=== PATIENT | female | born 1990 | race African-American/Black ===

== ENCOUNTER 2021-02-21 09:26 | Emergency (ER) | payer OTHER, SELFPAY ==
[2021-02-21] VITALS (8 sets, daily range): BP systolic 92–151; BP diastolic 51–106; PULSE 70–93; RESP 14–18; TEMP 37; O2SAT 95–100; BMI 29.7
--- NOTE | 2021-02-21 09:39 | ED_ITS ---
HPI - Abdominal Pain General Chief Complaint: Abdominal Pain Stated Complaint: Severe abd pain, vomitting, seizures (has Epilepsy Time Seen by Provider: 02/21/21 09:34 Source: patient Mode of arrival: Wheelchair Limitations: no limitations History of Present Illness HPI narrative: 30-year-old female nonsmoker with history of seizures presents with significant other and a chief complaint of feeling unwell since yesterday. She has had multiple episodes of nausea, vomiting and diarrhea. She states she has vomited upwards of 50 times and that she has even had small amount of blood streaks in more recent episodes of emesis. She has developed some generalized abdominal pain which seems a bit worse in her epigastrium and states this is worse with motion as well as eating and drinking. She denies any radiation of this pain. She has become dizzy, weak and lightheaded. She denies headache, runny nose or sore throat. She denies any dysuria, frequency or urgency. Related Data Previous Rx's Medication Instructions Recorded amoxicillin 875 mg-potassium 1 tab PO BID #20 tab 02/21/21 clavulanate 125 mg tablet (Augmentin) hyoscyamine sulfate 0.125 mg tablet 0.125 mg PO BID-QID PRN #20 tab 02/21/21 ondansetron 4 mg disintegrating 4 mg PO TID-QID PRN #10 tab 02/21/21 tablet Allergies Allergy/AdvReac Type Severity Reaction Status Date / Time No Known Drug Allergies Allergy Verified 02/21/21 09:37 Review of Systems Review of Systems Narrative: GENERAL: See HPI HEENT: See HPI RESPIRATORY: Denies dyspnea, cough, wheezing, hemoptysis, sputum. CARDIOVASCULAR: Denies chest pain, palpitations, orthopnea, edema, GASTROINTESTINAL: See HPI : Denies dysuria, frequency, incontinence, hematuria, urinary retention. MUSCULOSKELETAL: denies weakness, joint pain, or bony pain SKIN: Denies rash, skin lesions, or other NEUROLOGIC: Denies weakness, headache, numbness, change in speech, confusion, seizures, incoordination. PSYCHIATRIC: No concerning psychosocial issues. 12 point review of systems is negative except for those stated above Patient History Social History Smoking Status: Unknown if ever smoked Smoking Status: Unknown if ever smoked alcohol intake frequency: holidays/special occasions only Substance Use Type: marijuana Exam Narrative Exam Narrative: GENERAL: [22 year old patient appears stated age. Well-developed patient, in moderate distress, tearful, anxious, clearly feeling unwell. Holding an emesis bag HEAD: Atraumatic. Normocephalic. EYES: Pupils equal round and reactive. Extraocular motions intact. No scleral icterus. No injection or drainage. ENT: Nose without bleeding, purulent drainage. Throat without erythema, tonsillar hypertrophy or exudate. Airway patent. NECK: Trachea midline. Non tender CARDIOVASCULAR: Regular rate and rhythm without murmurs, gallops, or rubs. RESPIRATORY: Clear to auscultation. Breath sounds equal bilaterally. No wheezes, rales, or rhonchi. GASTROINTESTINAL: Abdomen soft, tender throughout, bowel sounds present. Most tender in the epigastrium and right upper quadrant EXTREMITIES: No edema or joint tenderness. BACK: Nontender without deformity or crepitance. No flank tenderness. NEURO: AOx3. SKIN: No rash or erythema of visible areas Initial Vital Signs Initial Vital Signs: Vital Signs Temperature 98.6 F 02/21/21 09:34 Pulse Rate 70 02/21/21 09:34 Respiratory Rate 14 02/21/21 09:34 Blood Pressure 151/106 H 02/21/21 09:34 Pulse Oximetry 100 02/21/21 09:34 Course Orders Ordered: Discontinued Medications Hydromorphone HCl (Hydromorphone 0.5 Mg Inj) 0.5 mg IV NOW ONE Stop: 02/21/21 09:49 Last Admin: 02/21/21 10:01 Dose: 0.5 mg Documented by: ISIDRO Sodium Chloride (Normal Saline 0.9%) 1,000 mls @ 1,000 mls/hr IV BOLUS ONE Stop: 02/21/21 10:41 Last Infusion: 02/21/21 11:18 Dose: 0 mls/hr Documented by: Admin: 02/21/21 10:05 Dose: 1,000 mls/hr Documented by: ISIDRO Ondansetron HCl (Ondansetron 4 Mg/2 Ml Inj) 4 mg IV NOW ONE Stop: 02/21/21 09:40 Last Admin: 02/21/21 10:00 Dose: 4 mg Documented by: ISIDRO Ondansetron HCl (Ondansetron 4 Mg/2 Ml Inj) 4 mg IV NOW ONE Stop: 02/21/21 09:43 Last Admin: 02/21/21 10:48 Dose: Not Given Documented by: ISIDRO Pantoprazole Sodium (Pantoprazole 40 Mg Vial) 40 mg IV NOW ONE Stop: 02/21/21 09:49 Last Admin: 02/21/21 10:04 Dose: 40 mg Documented by: ISIDRO Reevaluation(s) Reevaluation #1: Patient feeling much better after above-stated therapies Vital Signs Vital signs: Vital Signs - 8 hr 02/21/21 09:34 Temperature 98.6 F Pulse Rate 70 Respiratory Rate 14 Blood Pressure 151/106 H Pulse Oximetry 100 MDM - Abdominal Pain Lab Data Result diagrams: 02/21/21 09:53 02/21/21 09:53 Labs: Lab Results 02/21/21 02/21/21 02/21/21 Range/Units 09:53 09:53 10:28 WBC 19.1 H (4.5-11.0) X10^3/uL RBC 4.48 (4.0-5.2) X10^6/uL Hgb 13.4 (12.0-16.0) g/dL Hct 39.7 (36-46) % MCV 88.8 (80-100) fL MCH 29.9 (26-34) PG MCHC 33.6 (30-36) % RDW 14.4 (11.6-14.8) % Plt Count 255 (150-400) X10^3/uL Neut % (Auto) 93.0 H (50-75) % Lymph % (Auto) 3.5 L (25-40) % Garden % (Auto) 3.3 (3-14) % Eos % (Auto) 0.0 L (2-4) % Baso % (Auto) 0.2 (0-2) % Neut # (Auto) 34729 H (8334-0897) /uL Lymph # (Auto) 700 L (3215-2273) /uL Garden # (Auto) 600 (0-900) /uL Eos # (Auto) 0 (0-450) /uL Baso # (Auto) 0 (0-100) /uL Sodium 136 L (137-145) mmol/L Potassium 3.9 (3.4-5.1) mmol/L Chloride 102 (98-107) mmol/L Carbon Dioxide 24 (22-32) mmol/L BUN 10 (7-17) mg/dL Creatinine 0.69 (0.52-1.04) mg/dL Estimated GFR > 60.0 (>60) mL/min BUN/Creatinine Ratio 14.5 (6-22) Glucose 140 H (70-100) mg/dL Calcium 9.6 (8.4-10.2) mg/dL Total Bilirubin 1.4 H (0.2-1.3) mg/dL AST 32 (14-36) IU/L ALT 24 (<35) IU/L Alkaline Phosphatase 88 (38-126) U/L Total Protein 8.4 H (6.3-8.2) g/dL Albumin 4.9 (3.5-5.0) g/dL Globulin 3.5 (1.7-4.1) g/dL Albumin/Globulin Ratio 1.4 (1.0-2.8) Lipase 36 (23-300) U/L Serum , Qual (Negative) Urine RBC (0-5/HPF) Urine WBC (0-5/HPF) Ur Squamous Epith Cells (0-5/HPF) Urine Bacteria (None) Ur Culture Indicated? SARS-CoV-2 (PCR) Negative (Negative) 02/21/21 02/21/21 Range/Units 11:00 11:35 WBC (4.5-11.0) X10^3/uL RBC (4.0-5.2) X10^6/uL Hgb (12.0-16.0) g/dL Hct (36-46) % MCV (80-100) fL MCH (26-34) PG MCHC (30-36) % RDW (11.6-14.8) % Plt Count (150-400) X10^3/uL Neut % (Auto) (50-75) % Lymph % (Auto) (25-40) % Garden % (Auto) (3-14) % Eos % (Auto) (2-4) % Baso % (Auto) (0-2) % Neut # (Auto) (6886-6899) /uL Lymph # (Auto) (3222-2236) /uL Garden # (Auto) (0-900) /uL Eos # (Auto) (0-450) /uL Baso # (Auto) (0-100) /uL Sodium (137-145) mmol/L Potassium (3.4-5.1) mmol/L Chloride (98-107) mmol/L Carbon Dioxide (22-32) mmol/L BUN (7-17) mg/dL Creatinine (0.52-1.04) mg/dL Estimated GFR (>60) mL/min BUN/Creatinine Ratio (6-22) Glucose (70-100) mg/dL Calcium (8.4-10.2) mg/dL Total Bilirubin (0.2-1.3) mg/dL AST (14-36) IU/L ALT (<35) IU/L Alkaline Phosphatase (38-126) U/L Total Protein (6.3-8.2) g/dL Albumin (3.5-5.0) g/dL Globulin (1.7-4.1) g/dL Albumin/Globulin Ratio (1.0-2.8) Lipase (23-300) U/L Serum , Qual Negative (Negative) Urine RBC None seen (0-5/HPF) Urine WBC 1-5/hpf (0-5/HPF) Ur Squamous Epith Cells 1-5 /hpf (0-5/HPF) Urine Bacteria Many (>30) H (None) Ur Culture Indicated? Specimen cultured SARS-CoV-2 (PCR) (Negative) Point of care testing: Point of Care Testing Test Results Negative Urine Dip Bedside Urine Glucose Negative Bedside Urine Bilirubin - Negative Bedside Urine Ketone - Negative Urine Specific [place] 1.015 Bedside Urine Occult Blood - Negative Bedside Urine pH 7.5 Bedside Urine Protein +/- 15 Bedside Urine Urobilinogen - Negative Bedside Urine Nitrite - Negative Imaging Data US - abdomen: My Impression: Ultrasound Report Signed Patient: Gem Seymour MR#: [id number] : 1990 Acct:[id number] Age/Sex: 30 / F Date of Service: 02/21/21 Loc: ED Accession Number: [id number] ?? Procedure: US abdomen limited Ordering Provider: Demarcus Sierra D.O. PROCEDURE: US ABDOMEN LIMITED ? INDICATIONS:? SEVERE EPIGASTRIC PAIN. NAUSEA/VOMITING. WORSE POSTPRANDIAL. ? TECHNIQUE:? Real-time focused scanning was performed of the abdomen, with image documentation.? ? COMPARISON:? None. ? FINDINGS:? The gallbladder appears normally distended.? There are nonmobile sto kinjal in the gallbladder fundus.? There is a folded (Phrygian cap) configuration to the gallbladder.? No intrahepatic or extrahepatic biliary ductal dilatation.? Normal hepatic parenchymal echogenicity and echotexture.? Visualized portions of the pancreas are unremarkable. ? IMPRESSION:? Cholelithiasis without wall thickening or pericholecystic fluid to suggest cholecystitis. ? ? Dictated by: Bakari Palomino M.D. on 02/21/2021 at 10:27 ? ? Approved by: Bakari Palomino M.D. on 02/21/2021 at 10:38 ? CT scan - abdomen/pelvis: Radiologist's Impression: Gem Seymour??30??F??1990 ? Allergy/Adv: No Known Drug Allergies (More??) Close Abdomen/Pelvis CT (Signed) Stephanie Archibald - 02/21/21 Abdomen Ultrasound (Signed) Bakari Palomino - 02/21/21 Launch?[place] [address] CT Scan Report Signed Patient: Gem Seymour MR#: [id number] : 1990 Acct:[id number] Age/Sex: 30 / F Date of Service: 02/21/21 Loc: ED Accession Number: [id number] ?? Procedure: CT abdomen pelvis w con Ordering Provider: Demarcus Sierra D.O. PROCEDURE:? CT ABDOMEN PELVIS W CON ? INDICATIONS:? severe pain, N/V/D ? TECHNIQUE:? After the administration of IV contrast, axial sections were acquired from the lung bases to the pubic symphysis.? Coronal and sagittal reformats were performed.? For radiation dose reduction, the following was used:? automated exposure control, adjustment of mA and/or kV according to patient size. ? COMPARISON:? [facility], ABDOMEN LIMITED, 02/21/2021, 10:00. ? FINDINGS:? Image quality:? Excellent.? ? Lung bases:? 2 mm nodule is present along the right major fissure series 2, image 6. 1-2 mm juxta fissural nodule is present on series 2, image 4.? No priors are available for comparison. Heart:? No significant findings. ? ? ABDOMEN: Liver:? Liver is enlarged with steatosis. Gallbladder:? The gallbladder is unremarkable.? ? Biliary ducts:? Unremarkable.? ? Pancreas:? Unremarkable.? ? Spleen:? Unremarkable.? ? Adrenal Glands:? Unremarkable.? ? Kidneys and Ureters:? Unremarkable.? ? ? Stomach and Bowel:? Stomach, small bowel loops, and colon are nonobstructive.? There is a mildly thickened appearance of the transverse colon extending to the descending colon.? Minimal pericolonic stranding is present.? Appendix is normal. Peritoneum:? No abnormal intraperitoneal fluid.? No free air.? ? Ventral Wall: ? No hernia.? Abdominal Nodes:? No retroperitoneal or mesenteric adenopathy by size criteria.? Vessels:? Aorta and inferior vena cava are normal in size.? ? PELVIS: Pelvic Organs:? 5.2 x 4.3 cm low-attenuation focus is present within the left adnexa.? There is minimal surrounding dependent fluid. Bladder:? Unremarkable.? ? Pelvic Nodes: No enlarged lymph nodes.? Miscellaneous: No inguinal hernias are seen. ? ? ? Bones:? Unremarkable.? IMPRESSION:? ? 1. Mildly thickened appearance of the transverse and descending colon as above with areas of pericolonic stranding suggestive of colitis.? This may be secondary to infection or inflammation.? Colitis could also be secondary to diverticulitis, however it is noted there is a very minimal appearance of diverticula within this region. ? 2.? Right ovarian cyst.? ? ? Dictated by: Stephanie Archibald M.D. on 02/21/2021 at 12:04 ? ? Approved by: Stephanie Archibald M.D. on 02/21/2021 at 12:14 ? [facility] Narrative Medical decision making narrative: Patient had significant improvement in symptoms with above-stated therapies. Pain is well controlled she is tolerating orals. Labs demonstrate an elevated white blood cell count which could surely be a stress response from vomiting, also imaging would suggest a colitis. Gal lbladder disease and pancreatitis are considered but labs and imaging would suggest against this. Other diagnoses such as bowel obstruction considered but thought less likely given imaging. Return precautions given and questions answered to her apparent satisfaction Discharge Plan Departure Patient Disposition: Home Clinical Impression: Colitis Instructions: DI for Colitis Activity Restrictions/Additional Instructions: *You have been diagnosed with [abdominal pain and vomiting due to colitis *What to do: *Please continue to take your regular medications as directed. [ x] New medication prescriptions sent to your pharmacy: [ [facility] in [place]] [ ] New medication written as a paper prescription [ ] No new medications given *Please follow up with your primary care provider in 2-3 days, call for an appointment. Let them know you were seen in the Emergency Department and that we ask that you be seen in follow up. We will electronically transmit a record of today's note if your PCP is in our system *If you do not have a primary care provider please contact the [facility] Resource line at [phone]. They will ask some questions about your medical history and help get you set up with a doctor in the community. *Return to Emergency Department if you should have any new, worsening or concerning symptoms, such as [fever greater than 101 F, shaking chills, worsening pain, persistent vomiting or other bothersome symptoms] Prescriptions: New hyoscyamine sulfate 0.125 mg tablet 0.125 mg PO BID-QID PRN (Reason: dyspepsia) Qty: 20 RF: 0 ondansetron 4 mg tablet,disintegrating 4 mg PO TID-QID PRN (Reason: nausea and vomiting) Qty: 10 RF: 0 amoxicillin-pot clavulanate [Augmentin] 875-125 mg tablet 1 tab PO BID Qty: 20 RF: 0 Referrals: [facility] [Outside] Stand Alone Forms: Work Release Note
--- NOTE | 2021-02-21 09:48 | DI.US.S_ITS ---
PROCEDURE: US ABDOMEN LIMITED INDICATIONS: SEVERE EPIGASTRIC PAIN. NAUSEA/VOMITING. WORSE POSTPRANDIAL. TECHNIQUE: Real-time focused scanning was performed of the abdomen, with image documentation. COMPARISON: None. FINDINGS: The gallbladder appears normally distended. There are nonmobile stones in the gallbladder fundus. There is a folded (Phrygian cap) configuration to the gallbladder. No intrahepatic or extrahepatic biliary ductal dilatation. Normal hepatic parenchymal echogenicity and echotexture. Visualized portions of the pancreas are unremarkable. IMPRESSION: Cholelithiasis without wall thickening or pericholecystic fluid to suggest cholecystitis. Dictated by: Bakari Palomino M.D. on 02/21/2021 at 10:27 Approved by: Bakari Palomino M.D. on 02/21/2021 at 10:38
[2021-02-21] MEDS: ONDANSETRON 4 MG/2 ML INJ IV (10:00)
[2021-02-21] MEDS: HYDROMORPHONE 0.5 MG INJ IV (10:01)
[2021-02-21] MEDS: PANTOPRAZOLE 40 MG VIAL IV (10:04)
[2021-02-21] MEDS: SODIUM CHLORIDE 0.9% 1,000 ML 1000 ML IV (10:05)
[2021-02-21 10:07] LABS: Add Manual Diff / Slide Review NO; Basophils Absolute Auto 0 /uL (0-100); Basophils Percent Auto 0.2 % (0-2); Eosinophils Absolute Auto 0 /uL (0-450); Hematocrit 39.7 % (36-46); Hemoglobin 13.4 g/dL (12.0-16.0); Lymphocytes Absolute Auto 700 /uL (1100-4500); Lymphocytes Percent Auto 3.5 % (25-40); Mean Corpuscular HGB Conc 33.6 % (30-36); Mean Corpuscular Hemoglobin 29.9 PG (26-34); Mean Corpuscular Volume 88.8 fL (80-100); Monocytes Absolute Auto 600 /uL (0-900); Monocytes Percent Auto 3.3 % (3-14); Neutrophils Absolute Auto 17800 /uL (1500-7000); Platelet Count 255 X10^3/uL (150-400); Red Blood Cell Count 4.48 X10^6/uL (4.0-5.2); Red Cell Distribution Width 14.4 % (11.6-14.8); White Blood Cell Count 19.1 X10^3/uL (4.5-11.0)
[2021-02-21 10:29] LABS: Alanine Aminotransferase 24 IU/L (<35); Albumin 4.9 g/dL (3.5-5.0); Albumin Globulin Ratio 1.4 (1.0-2.8); Alkaline Phosphatase 88 U/L (38-126); Aspartate Aminotransferase 32 IU/L (14-36); BUN Creatinine Ratio 14.5 (6-22); Bilirubin Total 1.4 mg/dL (0.2-1.3); Blood Urea Nitrogen 10 mg/dL (7-17); Calcium 9.6 mg/dL (8.4-10.2); Carbon Dioxide 24 mmol/L (22-32); Chloride 102 mmol/L (98-107); Estimated Glomerular Filt Rate > 60.0 mL/min (>60); Globulin 3.5 g/dL (1.7-4.1); Glucose 140 mg/dL (70-100); HEMOLYSIS < 15 (0-50); Lipase 36 U/L (23-300); Potassium 3.9 mmol/L (3.4-5.1); Sodium 136 mmol/L (137-145); Total Protein 8.4 g/dL (6.3-8.2)
[2021-02-21 11:02] LABS: COVID19 -Nasal RAPID Negative (Negative)
[2021-02-21 11:09] LABS: Pregnancy Test Serum,Qual Negative (Negative)
--- NOTE | 2021-02-21 11:23 | DI.CT.S_ITS ---
PROCEDURE: CT ABDOMEN PELVIS W CON INDICATIONS: severe pain, N/V/D TECHNIQUE: After the administration of IV contrast, axial sections were acquired from the lung bases to the pubic symphysis. Coronal and sagittal reformats were performed. For radiation dose reduction, the following was used: automated exposure control, adjustment of mA and/or kV according to patient size. COMPARISON: [facility], , ABDOMEN LIMITED, 02/21/2021, 10:00. FINDINGS: Image quality: Excellent. Lung bases: 2 mm nodule is present along the right major fissure series 2, image 6. 1-2 mm juxta fissural nodule is present on series 2, image 4. No priors are available for comparison. Heart: No significant findings. ABDOMEN: Liver: Liver is enlarged with steatosis. Gallbladder: The gallbladder is unremarkable. Biliary ducts: Unremarkable. Pancreas: Unremarkable. Spleen: Unremarkable. Adrenal Glands: Unremarkable. Kidneys and Ureters: Unremarkable. Stomach and Bowel: Stomach, small bowel loops, and colon are nonobstructive. There is a mildly thickened appearance of the transverse colon extending to the descending colon. Minimal pericolonic stranding is present. Appendix is normal. Peritoneum: No abnormal intraperitoneal fluid. No free air. Ventral Wall: No hernia. Abdominal Nodes: No retroperitoneal or mesenteric adenopathy by size criteria. Vessels: Aorta and inferior vena cava are normal in size. PELVIS: Pelvic Organs: 5.2 x 4.3 cm low-attenuation focus is present within the left adnexa. There is minimal surrounding dependent fluid. Bladder: Unremarkable. Pelvic Nodes: No enlarged lymph nodes. Miscellaneous: No inguinal hernias are seen. Bones: Unremarkable. IMPRESSION: 1. Mildly thickened appearance of the transverse and descending colon as above with areas of pericolonic stranding suggestive of colitis. This may be secondary to infection or inflammation. Colitis could also be secondary to diverticulitis, however it is noted there is a very minimal appearance of diverticula within this region. 2. Right ovarian cyst. Dictated by: Stephanie Archibald M.D. on 02/21/2021 at 12:04 Approved by: Stephanie Archibald M.D. on 02/21/2021 at 12:14
[2021-02-21 12:38] LABS: Bacteria Urine Many (>30); Culture Indicated Urine Specimen Cultured; RBC Urine None Seen (0-5/HPF); Squamous Epithelial Cell Urine 1-5 /HPF (0-5/HPF); WBC Urine 1-5/HPF (0-5/HPF)
== END 2021-02-21 13:26 | disposition home or self-care (01) ==
PROVIDERS: Emergency Provider Emergency Medicine
DX: K52.9 Noninfective gastroenteritis and colitis, unspecified (principal); R11.2 Nausea with vomiting, unspecified; R10.9 Unspecified abdominal pain; Z20.822 Contact with and (suspected) exposure to COVID-19
CPT/HCPCS: 36415; 74177; 76705; 80053; 81003; 81015; 81025; 83690; 84703; 85025; 87077; 87086; 87186; 87635; 96361; 96374; 96375; 99284; C9803; C9113; J1170; J2405

== ENCOUNTER 2021-03-07 15:25 | Emergency (ER) | payer OTHER, SELFPAY ==
[2021-03-07 15:44] VITALS: BP 148/75; PULSE 91; RESP 20; TEMP 36.7; O2SAT 100; BMI 31.6
[2021-03-07 17:54] LABS: Add Manual Diff / Slide Review NO; Basophils Absolute Auto 100 /uL (0-100); Basophils Percent Auto 0.7 % (0-2); Eosinophils Absolute Auto 200 /uL (0-450); Eosinophils Percent Auto 2.2 % (2-4); Hematocrit 40.2 % (36-46); Hemoglobin 13.4 g/dL (12.0-16.0); Lymphocytes Absolute Auto 2600 /uL (1100-4500); Lymphocytes Percent Auto 31.1 % (25-40); Mean Corpuscular HGB Conc 33.5 % (30-36); Mean Corpuscular Hemoglobin 29.9 PG (26-34); Mean Corpuscular Volume 89.2 fL (80-100); Monocytes Absolute Auto 600 /uL (0-900); Monocytes Percent Auto 7.1 % (3-14); Neutrophils Absolute Auto 4800 /uL (1500-7000); Neutrophils Percent Auto 58.9 % (50-75); Platelet Count 283 X10^3/uL (150-400); Red Cell Distribution Width 14.5 % (11.6-14.8); White Blood Cell Count 8.2 X10^3/uL (4.5-11.0)
--- NOTE | 2021-03-07 17:56 | PC.NURSE ---
[facility] IMPLEMENTATION SPECIALISTBennett Mars was in room speaking to patient. Denae came out and said pt was having a seizure. Myself and Lilian RN went into room,pts eyes were closed and she as laying her head on her husbands shoulder/chest area. I attempted to visualize her pupils but she held her eyes closed. Shortly after I entered the room the patient asked for her who had moved away to allow staff near patient. She then began crying and said it's so embarrasing,why does this keep happening. Pts was telling denae that her seizures seem to happen when she is stressed.
[2021-03-07 18:02] LABS: Alanine Aminotransferase 40 IU/L (<35); Albumin 4.4 g/dL (3.5-5.0); Albumin Globulin Ratio 1.3 (1.0-2.8); Alkaline Phosphatase 81 U/L (38-126); Aspartate Aminotransferase 46 IU/L (14-36); BUN Creatinine Ratio 12.9 (6-22); Blood Urea Nitrogen 9 mg/dL (7-17); Calcium 9.4 mg/dL (8.4-10.2); Carbon Dioxide 24 mmol/L (22-32); Chloride 103 mmol/L (98-107); Estimated Glomerular Filt Rate > 60.0 mL/min (>60); Globulin 3.5 g/dL (1.7-4.1); Glucose 90 mg/dL (70-100); HEMOLYSIS < 15 (0-50); Lipase 120 U/L (23-300); Potassium 4.1 mmol/L (3.4-5.1); Sodium 137 mmol/L (137-145); Total Protein 7.9 g/dL (6.3-8.2)
--- NOTE | 2021-03-07 18:06 | ED.NEUROSD ---
HPI - Neuro Symptoms/Deficit General Chief Complaint: Neuro Symptoms/Deficit Stated Complaint: Seizures, Dizzy and Out of it Time Seen by Provider: 03/07/21 18:05 Source: patient and family Mode of arrival: Ambulatory Limitations: no limitations History of Present Illness HPI Narrative: This is a 30-year-old female comes emergency department with multiple concerns. Patient's main concern is that she might have bipolar. She describes in very up at times, having some difficulty sleeping, being very active in cleaning frequently. Then she will feel very low. She has had issues in the past with depression and was on anti depressions as teen. She states she no longer takes medication for this. She states she was diagnosed with seizures and she describes specifically vasovagal syncope at age 18 or 19 and did see a neurologist at that time. States she used to be on Klonopin but no longer takes that. She describes having multiple seizures over time, but also feeling dizzy, lightheaded and sometimes shaky and confused. She can always pinpoint what is going on around her. She also is concerned because she has chest pain that started this morning, it has increased over the last 2 hours. She denies any fevers. No cough or congestion. She has felt little bit short of breath. She denies nausea, no vomiting, no diarrhea constipation. She has had dysuria with a sense of urgency and frequency as well as some odor and new discharge. Patient believes she may have a yeast infection. Patient denies any other medical issues. No prior surgeries. She denies any allergies to medications. She vapes tobacco, occasional alcohol but states she has decreased her usage significantly. Occasional THC but no other recreational drugs. She is and cannot accompanied by her spouse who is in the [employer]. She states there has multiple stressors as her spouse is potentially going to be kicked out of the [employer] because he does not wish to have the COVID vaccine. Patient reiterates that her main concern is trying to get evaluated for bipolar. On Anticoagulants: No Related Data Previous Rx's Medication Instructions Recorded amoxicillin 875 mg-potassium 1 tab PO BID #20 tab 02/21/21 clavulanate 125 mg tablet (Augmentin) hyoscyamine sulfate 0.125 mg tablet 0.125 mg PO BID-QID PRN #20 tab 02/21/21 ondansetron 4 mg disintegrating 4 mg PO TID-QID PRN #10 tab 02/21/21 tablet fluconazole 150 mg tablet 150 mg PO .qday #2 tab 03/07/21 (Diflucan) Allergies Allergy/AdvReac Type Severity Reaction Status Date / Time No Known Drug Allergies Allergy Verified 02/21/21 09:37 Review of Systems Review of Systems ROS Unobtainable: All systems reviewed & are unremarkable except as noted in HPI and below Hematologic/Lymphatic On Anticoagulants: No Patient History Social History Smoking Status: Current every day smoker Smoking Status: Current every day smoker tobacco type: vaping alcohol intake frequency: holidays/special occasions only Substance Use Type: marijuana Exam Narrative Exam Narrative: GEN: well nourished, well appearing female, alert and oriented x 3, patient appears to be in mild distress. HEENT: Atraumatic, pupils are equal round reactive to light, extraocular movements are intact, nares are clear, TMs are clear with no fluid, there is no conjunctival pallor. Throat is clear without any exudates, erythema, tonsillar enlargement or uvular deviation HEART: Regular rate and rhythm without murmur, clicks, rubs. Pulses are equal in upper and lower extremities LUNGS:Lungs clear to auscultation, no wheezes, rales, crackles, chest moves symmetrically, tachypnea accessory muscle use. Patient speaks in full sentences. ABD:bowel sounds normal, soft, non-tender, no guarding, rebound, rigidity, no masses noted, no hepatosplenomegaly :No CVA tenderness MSCL: Non-tender, no muscle atrophy, muscles strength 5/5 upper and lower extremities, full range of motion NEURO:CN 2-12 intact, sensation normal , reflexes 2/4 upper and lower extremities. finger nose finger test normal, heel salas test normal, romberg normal SKIN: No rash, erythema or other skin changes. Initial Vital Signs Initial Vital Signs: Vital Signs Temperature 98.1 F 03/07/21 15:44 Pulse Rate 91 H 03/07/21 15:44 Respiratory Rate 20 03/07/21 15:44 Blood Pressure 148/75 H 03/07/21 15:44 Pulse Oximetry 100 03/07/21 15:44 Scores GCS Joleen coma scale eye opening: Spontaneous [place] coma scale verbal response: Orientated [place] coma scale motor response: Obey commands [place] coma scale total score: 15 Course Orders Ordered: Discontinued Medications Sodium Chloride (Normal Saline 0.9%) 1,000 mls @ 1,000 mls/hr IV BOLUS ONE Stop: 03/07/21 19:29 Last Infusion: 03/07/21 20:04 Dose: 0 mls/hr Documented by: Admin: 03/07/21 18:56 Dose: 1,000 mls/hr Documented by: LINN Ketorolac Tromethamine (Ketorolac 30 Mg/Ml Vial) 15 mg IV NOW ONE Stop: 03/07/21 18:31 Last Admin: 03/07/21 18:56 Dose: 15 mg Documented by: LINN Ondansetron HCl (Ondansetron 4 Mg/2 Ml Inj) 4 mg IV NOW ONE Stop: 03/07/21 19:24 Last Admin: 03/07/21 19:30 Dose: 4 mg Documented by: LINN Reevaluation(s) Reevaluation #1: Patient is feeling much better. Reviewed patient's imaging and findings. Gave her some referrals in options. They also resources from the social worker delinquency prevention at bedside. We did discuss she has had some odor, urine GC is negative. She is concerned about yeast infection and plan for Diflucan orally. Time: 21:05 Vital Signs Vital signs: Vital Signs - 8 hr 03/07/21 21:00 Pulse Rate 80 Respiratory Rate 15 Blood Pressure 126/87 Pulse Oximetry 100 MDM - Neuro Symptoms/Deficit Lab Data Result diagrams: 03/07/21 17:30 03/07/21 17:30 Labs: Lab Results 03/07/21 03/07/21 03/07/21 Range/Units 17:30 17:30 17:30 WBC 8.2 (4.5-11.0) X10^3/uL RBC 4.50 (4.0-5.2) X10^6/uL Hgb 13.4 (12.0-16.0) g/dL Hct 40.2 (36-46) % MCV 89.2 (80-100) fL MCH 29.9 (26-34) PG MCHC 33.5 (30-36) % RDW 14.5 (11.6-14.8) % Plt Count 283 (150-400) X10^3/uL Neut % (Auto) 58.9 (50-75) % Lymph % (Auto) 31.1 (25-40) % [place] % (Auto) 7.1 (3-14) % Eos % (Auto) 2.2 (2-4) % Baso % (Auto) 0.7 (0-2) % Neut # (Auto) 4800 (1822-9684) /uL Lymph # (Auto) 2600 (6479-1702) /uL [place] # (Auto) 600 (0-900) /uL Eos # (Auto) 200 (0-450) /uL Baso # (Auto) 100 (0-100) /uL Sodium 137 (137-145) mmol/L Potassium 4.1 (3.4-5.1) mmol/L Chloride 103 (98-107) mmol/L Carbon Dioxide 24 (22-32) mmol/L BUN 9 (7-17) mg/dL Creatinine 0.70 (0.52-1.04) mg/dL Estimated GFR > 60.0 (>60) mL/min BUN/Creatinine Ratio 12.9 (6-22) Glucose 90 (70-100) mg/dL Calcium 9.4 (8.4-10.2) mg/dL Total Bilirubin 1.0 (0.2-1.3) mg/dL AST 46 H (14-36) IU/L ALT 40 H (<35) IU/L Alkaline Phosphatase 81 (38-126) U/L Troponin I < 0.012 (0.01-0.034) ng/mL Total Protein 7.9 (6.3-8.2) g/dL Albumin 4.4 (3.5-5.0) g/dL Globulin 3.5 (1.7-4.1) g/dL Albumin/Globulin Ratio 1.3 (1.0-2.8) Lipase 120 (23-300) U/L Serum , Qual (Negative) U Opiates 300ng/mL cut (Negative) Ur Oxycodone Screen (Negative) Urine Methadone Screen (Negative) Ur Barbiturates Screen (Negative) U Tricyclic Antidepress (Negative) Ur Phencyclidine Scrn (Negative) Ur Amphetamines Screen (Negative) U Methamphetamines Scrn (Negative) Ur MDMA Scrn (Ecstasy) (Negative) U Benzodiazepines Scrn (Negative) Urine Cocaine Screen (Negative) U Marijuana (THC) Screen (Negative) Ethyl Alcohol ( - 10) mg/dL Ur Chlamydia DNA (PCR) SARS-CoV-2 (PCR) (Negative) N gonorrhoeae DNA (PCR) 03/07/21 03/07/21 03/07/21 Range/Units 17:30 17:30 19:08 WBC (4.5-11.0) X10^3/uL RBC (4.0-5.2) X10^6/uL Hgb (12.0-16.0) g/dL Hct (36-46) % MCV (80-100) fL MCH (26-34) PG MCHC (30-36) % RDW (11.6-14.8) % Plt Count (150-400) X10^3/uL Neut % (Auto) (50-75) % Lymph % (Auto) (25-40) % [place] % (Auto) (3-14) % Eos % (Auto) (2-4) % Baso % (Auto) (0-2) % Neut # (Auto) (1112-8512) /uL Lymph # (Auto) (8115-8095) /uL [place] # (Auto) (0-900) /uL Eos # (Auto) (0-450) /uL Baso # (Auto) (0-100) /uL Sodium (137-145) mmol/L Potassium (3.4-5.1) mmol/L Chloride (98-107) mmol/L Carbon Dioxide (22-32) mmol/L BUN (7-17) mg/dL Creatinine (0.52-1.04) mg/dL Estimated GFR (>60) mL/min BUN/Creatinine Ratio (6-22) Glucose (70-100) mg/dL Calcium (8.4-10.2) mg/dL Total Bilirubin (0.2-1.3) mg/dL AST (14-36) IU/L ALT (<35) IU/L Alkaline Phosphatase (38-126) U/L Troponin I (0.01-0.034) ng/mL Total Protein (6.3-8.2) g/dL Albumin (3.5-5.0) g/dL Globulin (1.7-4.1) g/dL Albumin/Globulin Ratio (1.0-2.8) Lipase (23-300) U/L Serum , Qual Negative (Negative) U Opiates 300ng/mL cut (Negative) Ur Oxycodone Screen (Negative) Urine Methadone Screen (Negative) Ur Barbiturates Screen (Negative) U Tricyclic Antidepress (Negative) Ur Phencyclidine Scrn (Negative) Ur Amphetamines Screen (Negative) U Methamphetamines Scrn (Negative) Ur MDMA Scrn (Ecstasy) (Negative) U Benzodiazepines Scrn (Negative) Urine Cocaine Screen (Negative) U Marijuana (THC) Screen (Negative) Ethyl Alcohol < 10 ( - 10) mg/dL Ur Chlamydia DNA (PCR) Not detected SARS-CoV-2 (PCR) (Negative) N gonorrhoeae DNA (PCR) Not detected 03/07/21 03/07/21 Range/Units 19:08 19:21 WBC (4.5-11.0) X10^3/uL RBC (4.0-5.2) X10^6/uL Hgb (12.0-16.0) g/dL Hct (36-46) % MCV (80-100) fL MCH (26-34) PG MCHC (30-36) % RDW (11.6-14.8) % Plt Count (150-400) X10^3/uL Neut % (Auto) (50-75) % Lymph % (Auto) (25-40) % [place] % (Auto) (3-14) % Eos % (Auto) (2-4) % Baso % (Auto) (0-2) % Neut # (Auto) (3808-9067) /uL Lymph # (Auto) (9692-2155) /uL [place] # (Auto) (0-900) /uL Eos # (Auto) (0-450) /uL Baso # (Auto) (0-100) /uL Sodium (137-145) mmol/L Potassium (3.4-5.1) mmol/L Chloride (98-107) mmol/L Carbon Dioxide (22-32) mmol/L BUN (7-17) mg/dL Creatinine (0.52-1.04) mg/dL Estimated GFR (>60) mL/min BUN/Creatinine Ratio (6-22) Glucose (70-100) mg/dL Calcium (8.4-10.2) mg/dL Total Bilirubin (0.2-1.3) mg/dL AST (14-36) IU/L ALT (<35) IU/L Alkaline Phosphatase (38-126) U/L Troponin I (0.01-0.034) ng/mL Total Protein (6.3-8.2) g/dL Albumin (3.5-5.0) g/dL Globulin (1.7-4.1) g/dL Albumin/Globulin Ratio (1.0-2.8) Lipase (23-300) U/L Serum , Qual (Negative) U Opiates 300ng/mL cut Negative (Negative) Ur Oxycodone Screen Negative (Negative) Urine Methadone Screen Negative (Negative) Ur Barbiturates Screen Negative (Negative) U Tricyclic Antidepress Negative (Negative) Ur Phencyclidine Scrn Negative (Negative) Ur Amphetamines Screen Negative (Negative) U Methamphetamines Scrn Negative (Negative) Ur MDMA Scrn (Ecstasy) Negative (Negative) U Benzodiazepines Scrn Negative (Negative) Urine Cocaine Screen Negative (Negative) U Marijuana (THC) Screen Positive H (Negative) Ethyl Alcohol ( - 10) mg/dL Ur Chlamydia DNA (PCR) SARS-CoV-2 (PCR) Negative (Negative) N gonorrhoeae DNA (PCR) Urine Dip Bedside Urine Glucose Negative Bedside Urine Bilirubin - Negative Bedside Urine Ketone - Negative Urine Specific [place] 1.030 Bedside Urine Occult Blood - Negative Bedside Urine pH 6.0 Bedside Urine Protein - Negative Bedside Urine Urobilinogen - Negative Bedside Urine Nitrite - Negative Bedside Urine Leukocytes - Negative Esterase ECG Data Attestation: I personally reviewed and interpreted this ECG as follows: Interpretation: Sinus rhythm with sinus arrhythmia. Rate of 72 RI 156 QRS of 76 and QTC 400. No acute ST changes appreciated. [facility] Narrative Medical decision making narrative: During patient's stay she had which she describes as a seizure. Patient did not have any tonic-clonic activity or changes consistent with focal seizure. Approximately 20 seconds symptoms without any postictal period or confusion. There was no staring or prolonged altered mental status witnessed by staff with no additional episodes in department. During discussion patient states she was told she had seizures and and then states that she was diagnosed with vasovagal syncope around the age of 18. Patient is concerned about possible bipolar and some of her daily symptoms do seem consistent with this. She does seem safe and appropriate for discharge home with otherwise reassuring labs, imaging and EKG. Patient did not have any rhythm changes on telemetry. Patient was seen by our social worker delinquency prevention. We discussed options including following up with psychiatry and primary care options. Patient does have support at home from her spouse and she prefers to return home at this time. All questions were answered. Patient also noted she may have a yeast infection and offered a short course of Diflucan. She did not have improvement would need pelvic exam. Discharge Plan Departure Patient Disposition: Home Clinical Impression: Mood disorder Instructions: DI for Mood Disorder Activity Restrictions/Additional Instructions: Follow up with psychiatry for further evaluation. They can help you in clarifying whether a diagnosis of bipolar or possibly a different diagnosis is appropriate for you. I do think this is in a very appropriate choice but does take time to be formally evaluated and diagnosed. Your urine today does not show clear infection but has been sent for culture. Typically results and 40-72 hours and if positive we will contact you. I would go ahead and treat you for possible yeast infection with a dose of Diflucan which can be repeated in 2 days. Prescription sent to [facility] in [place]. Your imaging and labs today are otherwise reassuring. Also included below are options for primary care providers as well as local psychiatrist. You may also contact [facility]. The number below is the suicide hotline but also the self-referral for resources such as counseling and providers. You can call this number at any time. If you're feeling suicidal or having suicidal thoughts, contact the suicide hotline: . Please return for new or worsening symptoms, thoughts of harming yourself or others, new worsening chest pain, shortness of breath, persistent vomiting, black or bloody stools or other new or concerning symptoms. Prescriptions: New fluconazole [Diflucan] 150 mg tablet 150 mg PO .qday Qty: 2 RF: 0 No Action hyoscyamine sulfate 0.125 mg tablet 0.125 mg PO BID-QID PRN (Reason: dyspepsia) Qty: 20 RF: 0 ondansetron 4 mg tablet,disintegrating 4 mg PO TID-QID PRN (Reason: nausea and vomiting) Qty: 10 RF: 0 amoxicillin-pot clavulanate [Augmentin] 875-125 mg tablet 1 tab PO BID Qty: 20 RF: 0 Referrals: Skip Kuhn MD [Physician] - Perry Mansfield DO [Physician] - Jessy Oneal DO [Physician] - Stand Alone Forms: Work Release Note
[2021-03-07 18:14] LABS: Troponin I < 0.012 ng/mL (0.01-0.034)
--- NOTE | 2021-03-07 18:30 | DI.CT.S_ITS ---
PROCEDURE: CT HEAD/BRAIN WO CON INDICATIONS: dizzy, seizures, syncope, multi complaints TECHNIQUE: Noncontrast 4.5 mm thick angled axial sections acquired from the foramen magnum to the vertex, with coronal and sagittal reformats. For radiation dose reduction, the following was used: automated exposure control, adjustment of mA and/or kV according to patient size. COMPARISON: None. FINDINGS: Image quality: Excellent. CSF spaces: Basal cisterns are patent. No extra-axial fluid collections. Ventricles are normal in size and shape. Brain: No midline shift. No intracranial masses or hemorrhage. [place]-white matter interface is normal. Skull and face: Calvarium and visualized facial bones are intact, without suspicious lesions. Sinuses: Visualized sinuses and mastoids are clear. IMPRESSION: Normal CT brain Approved by: Joe Curran M.D. on 03/07/2021 at 18:31
--- NOTE | 2021-03-07 18:30 | DI.RAD.S_ITS ---
PROCEDURE: XR CHEST 1V INDICATIONS: seizure, dizzy, chest pain, multiple complaints TECHNIQUE: One view of the chest was acquired. COMPARISON: None. FINDINGS: Surgical changes and devices: None. Lungs and pleura: Lungs are clear. No pleural effusions or pneumothorax. Mediastinum: Mediastinal contours appear normal. Heart size is normal. Bones and chest wall: No suspicious bony lesions. Overlying soft tissues appear unremarkable. IMPRESSION: No acute cardiopulmonary disease. Dictated by: Lynda Mcgarry M.D. on 03/07/2021 at 19:34 Approved by: Lynda Mcgarry M.D. on 03/07/2021 at 19:35
[2021-03-07 18:48] LABS: Pregnancy Test Serum,Qual Negative (Negative)
[2021-03-07 18:49] LABS: Ethanol (ETOH) < 10 mg/dL
[2021-03-07] MEDS: SODIUM CHLORIDE 0.9% 1,000 ML 1000 ML IV (18:56)
[2021-03-07] MEDS: KETOROLAC 30 MG/ML VIAL 15 MG IV (18:56)
[2021-03-07 19:21] LABS: UR Morphine/Opiate cutoff 300 Negative (Negative); Ur Creatinine Normal (Normal); Ur Specific Gravity Normal (Normal); Urine Amphetamines Negative (Negative); Urine Barbiturates Negative (Negative); Urine Benzodiazepines Negative (Negative); Urine Cocaine Negative (Negative); Urine MDMA Negative (Negative); Urine Methamphetamines Negative (Negative); Urine Phencyclidine Negative (Negative); Urine Tetrahydrocannabinol Positive (Negative); Urine pH Normal (Normal)
[2021-03-07 19:22] LABS: Urine Methadone Negative (Negative); Urine Oxycodone Negative (Negative); Urine Tricyclic Antidepressant Negative (Negative)
[2021-03-07] MEDS: ONDANSETRON 4 MG/2 ML INJ IV (19:30)
--- NOTE | 2021-03-07 19:48 | CM.SWNOTE ---
TOY TRAINS [employer] ACCESSORIES SALESPERSON Assessment TOY TRAINS AND ACCESSORIES SALESPERSON - Java Security Architect Assessment TOY TRAINS AND ACCESSORIES SALESPERSON/Java Security Architect Assessment Time Spent with Patient Start date 03/07/21 Visit Start Time 17:30 End date 03/07/21 Visit End Time 18:05 Total time Care Management spent on 35 patient visit-in minutes Mental Health Screening Include Onset, Duration, Intensity Presenting Problem Patient presents to the ED with concern for seizures, chest pain, life stresses and increasing anxiety. Patient expresses concern for hopelessness and depression at times and a lot of energy at other times. Precipitating Event(s) Patient endorses that increase in life stresses due to her being asked to leave the due to not getting vaccinated. It is reported that requested faith exemption. Patient Strengths Patient is seeking help. Current Behavioral Health Provider(s) No current providers Include Facility, Provider, Ph. # Psych. Hx Mental Health and Chemical Patient has no reported formal Dependency dx. Patient reports concern for anxiety, depression. Family Hx of Behavioral Abuse Patient endorses that she left home when she was 18 and her mother abandoned her. Psychiatric Hospitalizations (date(s)/ No hx. location) Psychosocial information & Support Patient is 30 y/o female who Systems resides in [place] with . It is reported that the couple moved here three months ago from [place]. Patient reports , friends and restoration members as supports. School/Work Employed at [employer] Concerns Legal Matters - Outstanding Issues None reported Mental Status Orientation (Person/Place/Time) A/Ox4 Stated Mood Anxious Affect (Congruent with Mood?) Anxious/tearful, labile, congruent with mood Thought Content - Specify/Describe None reported Obsessions, Delusions, Hallucinations Thought Processes (Akuvjyy-Chroverv-Kqdu Circumstantial Qxwawxul-Atphiwar-Lxbozeijqy- Lyflufjdgzkmli-Rhopugm-Eltfgpbaosst- Thought Blocking) Speech (Tjlryo-Wolk-Jufophs-Rapid-Soft- Rapid Loud-Pressured) Motor (Itqnac-Efvqspybj-Rkuy-Other) Excessive/other. Patient presented with seizure. Insight (Fgks-Xorl-Tszj/Limited) Fair/limited Judgement (Dnow-Qwzo-Yuoe/Limited) Fair/limited Impulse Control (Adequate-Impaired) somewhat adequate Memory (Pwhwiruys-Ijgfar-Nfpcio, intact, not formally assessed Impaired-Intact) Concentration (Intact-Impaired) intact Attention (Intact-Impaired) intact Behavior (Appropriate-Inappropriate) appropriate Risk Assessment Suicidal Ideation (Plan) No Homicidal Ideation (Plan) No Intervention Intervention TOY TRAINS AND ACCESSORIES SALESPERSON enters room to meet with patient. Present with patient is patient's and patient agrees to have present during assessment. Patient endorses increasing anxiety, seizures and concern for her MH. Patient endorses that she believes she has Bipolar due to her times of reported high energy cooking and cleaning and other times when she feels hopeless that she cannot get out of bed. Patient endorses thoughts of feeling judged and embarrassed when she has seizures. During assessment, TOY TRAINS AND ACCESSORIES SALESPERSON witnessed patient present with seizure after being tearful and discussing upsetting life stresses. Patient presents as alert and oriented directly afterwards. Patient endorses that she would like to stabilize and get a handle on her mental health and figure out her medical diagnoses. Patient reports she has a PCP appt at the [facility] on 03/[facility]. Patient endorses that she is open to outpatient providers. Patient denies SI and HI. It is the opinion of this TOY TRAINS AND ACCESSORIES SALESPERSON that patient is safe to d/c to home when medically clear. TOY TRAINS AND ACCESSORIES SALESPERSON provides patient with crisis contacts and outpatient providers that accept patient's insurance. TOY TRAINS AND ACCESSORIES SALESPERSON encourages patient to f/u with provider and seek a psychiatrist. TOY TRAINS AND ACCESSORIES SALESPERSON reviews the above with ED provider Dr. Morrow who indicates agreement and understanding. Plan RA Plan Patient to d/c to home when medically clear with PCP f/u and patient to seek MH outpatient provider. DAVEY Rogers
[2021-03-07 19:50] VITALS: PULSE 62; O2SAT 100
[2021-03-07 20:00] VITALS: BP 115/70; PULSE 60; RESP 16; O2SAT 100
[2021-03-07 20:04] LABS: COVID19 -Nasal RAPID Negative (Negative)
--- NOTE | 2021-03-07 20:26 | PC.NURSE ---
Pt in calm in room, reports feeling better after medications and fluids. States she didn't eat well today, didn't eat with afternoon medications and feels up to a meal tonight. Asking about discharge, updated on plan of care.
[2021-03-07 20:30] VITALS: BP 124/79; PULSE 65; O2SAT 100
[2021-03-07 20:42] LABS: Urine N gonorrhoeae NOT DETECTED
[2021-03-07 20:45] LABS: Urine Chlamydia NOT DETECTED
[2021-03-07 21:00] VITALS: BP 126/87; PULSE 80; RESP 15; O2SAT 100
== END 2021-03-07 21:12 | disposition home or self-care (01) ==
PROVIDERS: Emergency Medicine; Emergency Provider Emergency Medicine
DX: F39 Unspecified mood [affective] disorder (principal); R07.9 Chest pain, unspecified; R06.02 Shortness of breath; R42 Dizziness and giddiness; R30.0 Dysuria; Z20.822 Contact with and (suspected) exposure to COVID-19
CPT/HCPCS: 36415; 70450; 71045; 80053; 80305; 80320; 81003; 83690; 84484; 84703; 85025; 87491; 87591; 87635; 93005; 93010; 96361; 96374; 96375; 99284; C9803; J1885; J2405

== ENCOUNTER 2021-04-23 09:21 | Emergency (ER) | payer OTHER, SELFPAY ==
[2021-04-23] VITALS (20 sets, daily range): BP systolic 111–135; BP diastolic 73–92; PULSE 61–82; RESP 7–23; TEMP 36.8; O2SAT 99–100; BMI 30.7
--- NOTE | 2021-04-23 09:43 | DI.RAD.S_ITS ---
PROCEDURE: XR CHEST 1V INDICATIONS: chest pain TECHNIQUE: One view of the chest was acquired. COMPARISON: [facility], CR, XR CHEST 1V, 03/07/2021, 18:57. FINDINGS: Surgical changes and devices: None. Lungs and pleura: Lungs are clear. No pleural effusions or pneumothorax. Mediastinum: Mediastinal contours appear normal. Heart size is normal. Bones and chest wall: No suspicious bony lesions. Overlying soft tissues appear unremarkable. IMPRESSION: No acute cardiopulmonary abnormalities or focal airspace disease. Dictated by: Everton Marrero M.D. on 04/23/2021 at 10:03 Approved by: Everton Marrero M.D. on 04/23/2021 at 10:04
--- NOTE | 2021-04-23 10:54 | ED_ITS ---
HPI - Chest Pain General Chief Complaint: Chest Pain Stated Complaint: Chest pain, nausea Time Seen by Provider: 04/23/21 10:46 Source: patient Mode of arrival: Ambulatory Limitations: no limitations History of Present Illness HPI narrative: Has been brought patient here today. Patient here with multiple complaints including chest tightness off and on for the past month. As well as nausea start today. Has had off and on dizziness and headache as well. Patient is under lot of stress. Patient has been released by the because of vaccine reasons. Patient is trying to maintain 2 jobs to support the family. Patient primary care is in [facility]. 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 Denies any seizures currently. No SI or HI patient has not seen anybody with mental health. Patient desires to see social work for resources Related Data Previous Rx's Medication Instructions Recorded amoxicillin 875 mg-potassium 1 tab PO BID #20 tab 02/21/21 clavulanate 125 mg tablet (Augmentin) hyoscyamine sulfate 0.125 mg tablet 0.125 mg PO BID-QID PRN #20 tab 02/21/21 ondansetron 4 mg disintegrating 4 mg PO TID-QID PRN #10 tab 02/21/21 tablet fluconazole 150 mg tablet 150 mg PO .qday #2 tab 03/07/21 (Diflucan) hydroxyzine HCl 25 mg tablet 25 mg PO TID PRN #20 tab 04/23/21 ondansetron 4 mg disintegrating 4 mg PO Q8H PRN #10 tab 04/23/21 tablet pantoprazole 40 mg tablet,delayed 40 mg PO DAILY #30 tab 04/23/21 release (Protonix) sucralfate 1 gram tablet 1 g PO BID #20 tab 04/23/21 Allergies Allergy/AdvReac Type Severity Reaction Status Date / Time No Known Drug Allergies Allergy Verified 04/23/21 09:43 Review of Systems Review of Systems Narrative: GENERAL: Denies chills, fatigue, malaise, fever, sweats. HEENT: Denies sinus pain, ear pain, sore throat RESPIRATORY: Denies dyspnea, cough CARDIOVASCULAR: Positive chest pain, palpitations GASTROINTESTINAL: Positive nausea, negative vomiting, abdominal pain : Denies dysuria, frequency, hematuria MUSCULOSKELETAL: denies muscle or bony pain SKIN: Denies rash, skin lesions NEUROLOGIC: Denies weakness, numbness, positive dizziness PSYCH: Positive anxiety, no SI or HI. ROS Unobtainable: All systems reviewed & are unremarkable except as noted in HPI and below Patient History Social History Smoking Status: Current every day smoker Smoking Status: Current every day smoker tobacco type: vaping alcohol intake frequency: 0-2 drinks per day Substance Use Type: marijuana Exam Narrative Exam Narrative: GENERAL: in no distress, not toxic not dyspneic HEAD: Normocephalic. EYES: Pupils equal round No scleral icterus. ENT: Mucous membranes moist. NECK: Trachea midline. CARDIOVASCULAR: Regular rate and rhythm without murmurs RESPIRATORY: Clear to auscultation. Breath sounds equal bilaterally. No wheezes, rales, or rhonchi. GASTROINTESTINAL: Abdomen soft, non-tender : female tech at bedside to cyst and surgery nurse, [place], normal external exam. No vaginal bleeding or discharge. No lesions. EXTREMITIES: No gross deformities. BACK: No flank tenderness. NEURO: AOx4. SKIN: Warm and dry PSYCH: Patient veryanxious, is tearful, no SI or HI, is cooperative Initial Vital Signs Initial Vital Signs: Vital Signs Temperature 98.2 F 04/23/21 09:35 Pulse Rate 67 04/23/21 09:35 Respiratory Rate 12 04/23/21 09:35 Blood Pressure 111/75 04/23/21 09:35 Pulse Oximetry 100 04/23/21 09:35 Course Course Course Narrative: During course of stay she mention she has had some vaginal discomfort and burning sensation. She is requesting to have pelvic exam is at bedside Orders Ordered: ED Orders 04/23/21 09:43 XR chest 1V Stat EKG-12 Lead Stat 04/23/21 10:58 Consult to [employer] - Negotiator Stat 04/23/21 12:57 Complete Blood Count AUTO DIFF Stat Comprehensive Metabolic Panel Stat Test Serum,Qual Stat Troponin & CK Cardiac Panel Stat 04/23/21 14:23 Wet Prep Tric BV Violetta Stat 04/23/21 16:16 Chlamydia Gonorrhea PCR -URINE Stat Urine Drug Screen, Rapid Stat Discontinued Medications Alprazolam (Alprazolam 0.5 Mg Tablet) 0.5 mg PO NOW ONE Stop: 04/23/21 13:23 Last Admin: 04/23/21 13:30 Dose: 0.5 mg Documented by: NICK Al Hydrox/Mg Hydrox/Simethicone 20 ml/ Lidocaine HCl 15 ml 0 ml PO NOW ONE Stop: 04/23/21 13:45 Last Admin: 04/23/21 13:53 Dose: 35 ml Documented by: NICK Ondansetron HCl (Ondansetron 4 Mg Odt) 4 mg SL NOW ONE Stop: 04/23/21 12:38 Last Admin: 04/23/21 12:50 Dose: 4 mg Documented by: NICK Pantoprazole Sodium (Pantoprazole Dr 20 Mg Tablet) 40 mg PO NOW ONE Stop: 04/23/21 13:45 Last Admin: 04/23/21 13:54 Dose: 40 mg Documented by: NICK Reevaluation(s) Reevaluation #1: Patient feeling much better after medications. Desires discharge home. Time: 16:29 Consultations Consultation #1: Social work has seen patient and given resources. Time: 13:46 Vital Signs Vital signs: Vital Signs - 8 hr 04/23/21 10:28 04/23/21 10:30 04/23/21 11:00 Pulse Rate 68 70 61 Respiratory Rate 9 L 8 L 10 L Blood Pressure 133/85 Pulse Oximetry 100 100 100 04/23/21 11:15 04/23/21 11:30 04/23/21 12:00 Pulse Rate 78 69 74 Respiratory Rate 17 17 17 Blood Pressure 133/85 Pulse Oximetry 99 100 100 04/23/21 12:30 04/23/21 12:43 04/23/21 13:22 Pulse Rate 82 67 78 Respiratory Rate 23 13 Blood Pressure 135/92 H Pulse Oximetry 100 100 100 04/23/21 13:25 04/23/21 13:30 04/23/21 14:00 Pulse Rate 71 73 69 Respiratory Rate 7 L Blood Pressure 131/73 Pulse Oximetry 100 99 100 04/23/21 14:30 04/23/21 15:00 04/23/21 15:30 Pulse Rate 67 69 70 Respiratory Rate 18 15 15 Blood Pressure Pulse Oximetry 100 99 99 04/23/21 16:00 Pulse Rate 67 Respiratory Rate 13 Blood Pressure Pulse Oximetry 100 MDM - Chest Pain Differential Diagnosis Differential diagnosis: Likely chest pain and other (Anxiety) Medical Records Data Medical records narrative: [address] [address] [address] Scan Report Signed Patient: Gem Seymour MR#: [id number] : 1990 Acct:[id number] Age/Sex: 30 / F Date of Service: 03/07/21 Loc: ED Accession Number: [id number] ?? Procedure: CT head/brain wo con Ordering Provider: Jo Morrow D.O. PROCEDURE:? CT HEAD/BRAIN WO CON ? INDICATIONS:? dizzy, seizures, syncope, multi complaints ? TECHNIQUE:? Noncontrast 4.5 mm thick angled axial sections acquired from the foramen magnum to the vertex, with coronal and sagittal reformats.? For radiation dose reduction, the following was used:? automated exposure control, adjustment of mA and/or kV according to patient size.? ? COMPARISON:? None. ? FINDINGS:? Image quality:? Excellent.? ? CSF spaces:? Basal cisterns are patent.? No extra-axial fluid collections.? Ventricles are normal in size and shape.? ? Brain:? No midline shift.? No intracranial masses or hemorrhage.? [place]-white matter interface is normal.? ? Skull and face:? Calvarium and visualized facial bones are intact, without suspicious lesions.? ? Sinuses:? Visualized sinuses and mastoids are clear.? ? IMPRESSION:? Normal CT brain ? ? ? Approved by: Joe Curran M.D. on 03/07/2021 at 18:31? Lab Data Result diagrams: 04/23/21 12:57 04/23/21 12:57 Labs: Lab Results 04/23/21 04/23/21 04/23/21 Range/Units 12:57 12:57 12:57 WBC 8.6 (4.5-11.0) X10^3/uL RBC 4.30 (4.0-5.2) X10^6/uL Hgb 12.9 (12.0-16.0) g/dL Hct 37.6 (36-46) % MCV 87.4 (80-100) fL MCH 30.0 (26-34) PG MCHC 34.3 (30-36) % RDW 14.2 (11.6-14.8) % Plt Count 296 (150-400) X10^3/uL Neut % (Auto) 60.9 (50-75) % Lymph % (Auto) 30.6 (25-40) % [place] % (Auto) 5.4 (3-14) % Eos % (Auto) 2.2 (2-4) % Baso % (Auto) 0.9 (0-2) % Neut # (Auto) 5200 (2077-6865) /uL Lymph # (Auto) 2600 (9251-4375) /uL [place] # (Auto) 500 (0-900) /uL Eos # (Auto) 200 (0-450) /uL Baso # (Auto) 100 (0-100) /uL Sodium 136 L (137-145) mmol/L Potassium 3.9 (3.4-5.1) mmol/L Chloride 103 (98-107) mmol/L Carbon Dioxide 25 (22-32) mmol/L BUN 10 (7-17) mg/dL Creatinine 0.78 (0.52-1.04) mg/dL Estimated GFR > 60.0 (>60) mL/min BUN/Creatinine Ratio 12.8 (6-22) Glucose 91 (70-100) mg/dL Calcium 9.2 (8.4-10.2) mg/dL Total Bilirubin 1.2 (0.2-1.3) mg/dL AST 30 (14-36) IU/L ALT 23 (<35) IU/L Alkaline Phosphatase 90 (38-126) U/L Total Creatine Kinase 163 H (30-135) U/L CK-MB (CK-2) 0.27 (<2.37) ng/mL CK-MB (CK-2) Rel Index 0.2 L (1.5-5.0) % Troponin I < 0.012 (0.01-0.034) ng/mL Total Protein 7.9 (6.3-8.2) g/dL Albumin 4.6 (3.5-5.0) g/dL Globulin 3.3 (1.7-4.1) g/dL Albumin/Globulin Ratio 1.4 (1.0-2.8) Serum , Qual Negative (Negative) U Opiates 300ng/mL cut (Negative) Ur Oxycodone Screen (Negative) Urine Methadone Screen (Negative) Ur Barbiturates Screen (Negative) U Tricyclic Antidepress (Negative) Ur Phencyclidine Scrn (Negative) Ur Amphetamines Screen (Negative) U Methamphetamines Scrn (Negative) Ur MDMA Scrn (Ecstasy) (Negative) U Benzodiazepines Scrn (Negative) Urine Cocaine Screen (Negative) U Marijuana (THC) Screen (Negative) Ur Chlamydia DNA (PCR) N gonorrhoeae DNA (PCR) 04/23/21 04/23/21 Range/Units 16:16 16:16 WBC (4.5-11.0) X10^3/uL RBC (4.0-5.2) X10^6/uL Hgb (12.0-16.0) g/dL Hct (36-46) % MCV (80-100) fL MCH (26-34) PG MCHC (30-36) % RDW (11.6-14.8) % Plt Count (150-400) X10^3/uL Neut % (Auto) (50-75) % Lymph % (Auto) (25-40) % [place] % (Auto) (3-14) % Eos % (Auto) (2-4) % Baso % (Auto) (0-2) % Neut # (Auto) (3619-5346) /uL Lymph # (Auto) (8029-8792) /uL [place] # (Auto) (0-900) /uL Eos # (Auto) (0-450) /uL Baso # (Auto) (0-100) /uL Sodium (137-145) mmol/L Potassium (3.4-5.1) mmol/L Chloride (98-107) mmol/L Carbon Dioxide (22-32) mmol/L BUN (7-17) mg/dL Creatinine (0.52-1.04) mg/dL Estimated GFR (>60) mL/min BUN/Creatinine Ratio (6-22) Glucose (70-100) mg/dL Calcium (8.4-10.2) mg/dL Total Bilirubin (0.2-1.3) mg/dL AST (14-36) IU/L ALT (<35) IU/L Alkaline Phosphatase (38-126) U/L Total Creatine Kinase (30-135) U/L CK-MB (CK-2) (<2.37) ng/mL CK-MB (CK-2) Rel Index (1.5-5.0) % Troponin I (0.01-0.034) ng/mL Total Protein (6.3-8.2) g/dL Albumin (3.5-5.0) g/dL Globulin (1.7-4.1) g/dL Albumin/Globulin Ratio (1.0-2.8) Serum , Qual (Negative) U Opiates 300ng/mL cut Negative (Negative) Ur Oxycodone Screen Negative (Negative) Urine Methadone Screen Negative (Negative) Ur Barbiturates Screen Negative (Negative) U Tricyclic Antidepress Negative (Negative) Ur Phencyclidine Scrn Negative (Negative) Ur Amphetamines Screen Negative (Negative) U Methamphetamines Scrn Negative (Negative) Ur MDMA Scrn (Ecstasy) Negative (Negative) U Benzodiazepines Scrn Negative (Negative) Urine Cocaine Screen Negative (Negative) U Marijuana (THC) Screen Positive H (Negative) Ur Chlamydia DNA (PCR) Not detected N gonorrhoeae DNA (PCR) Not detected Point of Care Testing Test Results Negative Imaging Data Chest x-ray: Radiologist's Impression: [address] [address] XRay Report Signed Patient: Gem Seymour MR#: [id number] : 1990 Acct:[id number] Age/Sex: 30 / F Date of Service: 04/23/21 Loc: ED Accession Number: [id number] ?? Procedure: XR chest 1V Ordering Provider: Rafa Watts MD PROCEDURE:? XR CHEST 1V ? INDICATIONS:? chest pain ? TECHNIQUE:? One view of the chest was acquired.? ? COMPARISON:? [facility], , XR CHEST 1V, 03/07/2021, 18:57. ? FINDINGS:? ? Surgical changes and devices:? None.? ? Lungs and pleura:? Lungs are clear.? No pleural effusions or pneumothorax.? ? Mediastinum:? Mediastinal contours appear normal.? Heart size is normal.? ? Bones and chest wall:? No suspicious bony lesions.? Overlying soft tissues appear unremarkable.? ? IMPRESSION:? No acute cardiopulmonary abnormalities or focal airspace disease. ? Dictated by: Everton Marrero M.D. on 04/23/2021 at 10:03 ? ? Approved by: Everton Marrero M.D. on 04/23/2021 at 10:04 ? ECG Data Interpretation: Normal sinus rhythm normal EKG rate 65 MDM Narrative Medical decision making narrative: Appropriate for discharge home. At this time I feel the anxiety patient has been going through with a lot of stress causing the chest discomfort. Patient has low risk factors for coronary disease. Does not have exertional chest pain. No repeat heart enzymes. This is been going on for the past month Has many different complaints presenting today regarding her care. Including insurance claim approver concerns and social concerns. Return precautions reviewed with her. She feels much better at time of discharge. at bedside. Discharge Plan Departure Patient Disposition: Home Clinical Impression: Anxiety, Vaginitis Instructions: DI for Anxiety -- Adult Activity Restrictions/Additional Instructions: See family doctor for re-evaluation. Call tomorrow for office recheck. Call provided resources from our social media community manager to help with stress and anxiety as well. No driving or operating machinery today. You may need endoscopy of the stomach. May call provided general surgeon to make an appointment. May try using gizg-iio-bbkjajq Vagisil for vaginal irritation. Prescriptions: New sucralfate 1 gram tablet 1 g PO BID Qty: 20 0RF pantoprazole [Protonix] 40 mg tablet,delayed release (DR/EC) 40 mg PO DAILY Qty: 30 0RF hydroxyzine HCl 25 mg tablet 25 mg PO TID PRN (Reason: anxiety) Qty: 20 0RF ondansetron 4 mg tablet,disintegrating 4 mg PO Q8H PRN (Reason: nausea and vomiting) Qty: 10 0RF No Action hyoscyamine sulfate 0.125 mg tablet 0.125 mg PO BID-QID PRN (Reason: dyspepsia) Qty: 20 0RF ondansetron 4 mg tablet,disintegrating 4 mg PO TID-QID PRN (Reason: nausea and vomiting) Qty: 10 0RF amoxicillin-pot clavulanate [Augmentin] 875-125 mg tablet 1 tab PO BID Qty: 20 0RF fluconazole [Diflucan] 150 mg tablet 150 mg PO .qday Qty: 2 0RF Rx Instructions: Take one tablet every other day. Stand Alone Forms: Work Release Note
--- NOTE | 2021-04-23 11:16 | PC.NURSE ---
Patient reports significant stressors in her life right now. She states recent 2 mos history of heart palpitations, substantial emotional stress, is being kicked out of the , she is feeling homesick for family and [place] and hx of mental health stressors.
[2021-04-23] MEDS: ONDANSETRON 4 MG ODT SL (12:50)
--- NOTE | 2021-04-23 13:02 | CM.SWNOTE ---
CASTING ROOM OPERATOR Assessment CASTING ROOM OPERATOR - Quality Control Expert Assessment CASTING ROOM OPERATOR/Quality Control Expert Assessment Time Spent with Patient Start date 04/23/21 Visit Start Time 12:25 End date 04/23/21 Visit End Time 12:40 Total time Care Management spent on 15 patient visit-in minutes Mental Health Screening Include Onset, Duration, Intensity Presenting Problem Patient presents to the ED with concern for chest pains, anxiety and life stresses. Precipitating Event(s) Patient's is being asked to leave the due to not following covid vaccination protocol. Patient Strengths Patient is seeking help Current Behavioral Health Provider(s) Patient states she sees Include Facility, Provider, Ph. # counselor at [facility] and is currently seeking MH outpatient provider. CASTING ROOM OPERATOR to provide MH resources. Psych. Hx Mental Health and Chemical Patient has no formal dx Dependency documented. Patient endorses hx of ADHD, anxiety, Bipolar and depression. Family Hx of Behavioral Abuse Patient endorses leaving her household at the age of 18, living independently due to lack of support from mother and family. Psychiatric Hospitalizations (date(s)/ None reported. location) Psychosocial information & Support Patient is 30 y/o female who Systems resides in [place] with . Couple recently moved from [place] due to relocation. At this time, is ending his service in the and couple is seeking financial stability. Patient endorses , spiritism and friends as supports . School/Work Patient endorses she works at a [employer] company and enjoys her job. Patient endorses concern that her health, MH and anxiety is interfering with her ability to function at work. Legal Concerns Legal Matters - Outstanding Issues None reported Mental Status Orientation (Person/Place/Time) A/Ox4 Stated Mood tired Affect (Congruent with Mood?) Euphoric/anxious, labile, not congruent with mood. Thought Content - Specify/Describe None reported Obsessions, Delusions, Hallucinations Thought Processes (Nocetjg-Imqojemo-Lxha Circumstantial Csgzatly-Pyfxtipd-Ustgnlovqp- Rwsqizdxtufvtb-Ndfmqcp-Uafqhdxxwwoo- Thought Blocking) Speech (Jpkyyn-Wkml-Ayyuela-Rapid-Soft- Rapid/loud Loud-Pressured) Motor (Vnynus-Pkcqalwas-Wvep-Other) Excessive/normal Insight (Eeka-Jwsz-Fajn/Limited) Fair/limited Judgement (Ocst-Thqj-Jewv/Limited) poor/limited Impulse Control (Adequate-Impaired) adequate during assessment Memory (Vjtqeljql-Zsotwx-Mbmccr, intact, not formally Impaired-Intact) assessment Concentration (Intact-Impaired) intact Attention (Intact-Impaired) intact Behavior (Appropriate-Inappropriate) appropriate Additional Comment Patient is able to effectively communicate with CASTING ROOM OPERATOR. Risk Assessment Suicidal Ideation (Plan) No Homicidal Ideation (Plan) No Comment Patient endorses dark thoughts but does not endorse wanting to end her life or harm herself. Patient endorses that she is emotionally giving up Intervention Intervention web methods developer enter room to meet with patient and with patient's consent. Patient endorses life stresses , increasing anxiety and concern for her ability to earn an income for her family during this time due to her MH . Patient endorses her concern for seeking a therapist, seeking a PCP that can prescribe her medication to address her anxiety and to maintain her employment status . Patient acknowledges that she met with CASTING ROOM OPERATOR several weeks ago and patient has not identified a MH provider or new PCP at this time. CASTING ROOM OPERATOR to provide patient and with MH resources, crisis contacts and state benefit resources. Patient endorses that she has natural supports that she can utilize during this time as well. Patient endorses that she will seek an appt with PCP promptly. It is the opinion of this CASTING ROOM OPERATOR that patient patient is safe to d/c to the community. CASTING ROOM OPERATOR reviews the above with ED provider Dr. Watts who indicates agreement and understanding. Plan RA Plan Patient to d/c to home when medically clear with provided MH and community resources. DAVEY Rogers
[2021-04-23 13:08] LABS: Add Manual Diff / Slide Review NO; Basophils Absolute Auto 100 /uL (0-100); Basophils Percent Auto 0.9 % (0-2); Eosinophils Absolute Auto 200 /uL (0-450); Eosinophils Percent Auto 2.2 % (2-4); Hematocrit 37.6 % (36-46); Hemoglobin 12.9 g/dL (12.0-16.0); Lymphocytes Absolute Auto 2600 /uL (1100-4500); Lymphocytes Percent Auto 30.6 % (25-40); Mean Corpuscular HGB Conc 34.3 % (30-36); Mean Corpuscular Volume 87.4 fL (80-100); Monocytes Absolute Auto 500 /uL (0-900); Monocytes Percent Auto 5.4 % (3-14); Neutrophils Absolute Auto 5200 /uL (1500-7000); Neutrophils Percent Auto 60.9 % (50-75); Platelet Count 296 X10^3/uL (150-400); Red Cell Distribution Width 14.2 % (11.6-14.8); White Blood Cell Count 8.6 X10^3/uL (4.5-11.0)
[2021-04-23 13:16] LABS: Pregnancy Test Serum,Qual Negative (Negative)
[2021-04-23 13:21] LABS: Alanine Aminotransferase 23 IU/L (<35); Albumin 4.6 g/dL (3.5-5.0); Albumin Globulin Ratio 1.4 (1.0-2.8); Alkaline Phosphatase 90 U/L (38-126); Aspartate Aminotransferase 30 IU/L (14-36); BUN Creatinine Ratio 12.8 (6-22); Bilirubin Total 1.2 mg/dL (0.2-1.3); Blood Urea Nitrogen 10 mg/dL (7-17); Calcium 9.2 mg/dL (8.4-10.2); Carbon Dioxide 25 mmol/L (22-32); Chloride 103 mmol/L (98-107); Creatine Kinase 163 U/L (30-135); Estimated Glomerular Filt Rate > 60.0 mL/min (>60); Globulin 3.3 g/dL (1.7-4.1); Glucose 91 mg/dL (70-100); HEMOLYSIS < 15 (0-50); Potassium 3.9 mmol/L (3.4-5.1); Sodium 136 mmol/L (137-145); Total Protein 7.9 g/dL (6.3-8.2)
[2021-04-23] MEDS: ALPRAZolam 0.5 MG TABLET PO (13:30)
[2021-04-23 13:33] LABS: Troponin I < 0.012 ng/mL (0.01-0.034)
[2021-04-23 13:36] LABS: CKMB % Relative Index 0.2 % (1.5-5.0); Creatine Kinase MB 0.27 ng/mL (<2.37)
[2021-04-23] MEDS: MAG HYDROX/ALUMINUM/SIMETH SUS 20 ML, LIDOCAINE VISCOUS 2% 15 ML PO (13:53)
[2021-04-23] MEDS: PANTOPRAZOLE DR 20 MG TABLET 40 MG PO (13:54)
[2021-04-23 16:34] LABS: UR Morphine/Opiate cutoff 300 Negative (Negative); Ur Creatinine Normal (Normal); Ur Specific Gravity Normal (Normal); Urine Amphetamines Negative (Negative); Urine Barbiturates Negative (Negative); Urine Benzodiazepines Negative (Negative); Urine Cocaine Negative (Negative); Urine MDMA Negative (Negative); Urine Methadone Negative (Negative); Urine Methamphetamines Negative (Negative); Urine Oxycodone Negative (Negative); Urine Phencyclidine Negative (Negative); Urine Tetrahydrocannabinol Positive (Negative); Urine Tricyclic Antidepressant Negative (Negative); Urine pH Normal (Normal)
[2021-04-23 17:56] LABS: Urine N gonorrhoeae NOT DETECTED
[2021-04-23 18:11] LABS: Urine Chlamydia NOT DETECTED
== END 2021-04-23 16:37 | disposition home or self-care (01) ==
PROVIDERS: Emergency Provider Emergency Medicine
DX: F41.9 Anxiety disorder, unspecified (principal); N76.0 Acute vaginitis; R11.0 Nausea
CPT/HCPCS: 71045; 80053; 80305; 81025; 82550; 82553; 84484; 84703; 85025; 87210; 87491; 87591; 93005; 99283; 99284

== ENCOUNTER 2021-05-29 07:15 | Emergency (ER) | payer OTHER, SELFPAY ==
[2021-05-29 07:30] VITALS: BP 118/78; PULSE 87; RESP 20; O2SAT 97
--- NOTE | 2021-05-29 07:32 | DI.US.S_ITS ---
PROCEDURE: US OB <= 14 WEEKS FETUS INDICATIONS: LLQ PAIN OUTSIDE/PRIOR DATING DATA: First dating scan (date and location): 05/29/2021. Estimated date of delivery (BRIAN) from first dating scan: Approximately 01/24/2022. TECHNIQUE: Real-time scanning was performed of the fetus and maternal pelvic organs, with image documentation. Endovaginal scanning was also performed to better visualize the fetus and maternal ovaries. COMPARISON: None. FINDINGS: Embryo: Intrauterine gestational sac. Mean gestational sac diameter 0.9 cm, corresponding to estimated gestational age of 5 weeks 5 days. No pole at this time. Heart rate: Not detected at this time. Maternal organs: Right ovary demonstrates a large anechoic cyst with a thin septation measuring 6.4 cm. IMPRESSION: 1. Intrauterine gestational sac at approximately 5 weeks 5 days. No pole at this time. 2. No perigestational hemorrhage. 3. Right ovary large minimally complex cyst measuring 6.4 cm. Recommend attention on follow-up OB ultrasound. Recommend follow-up OB ultrasound. We strive to produce accurate, complete, and clear reports of imaging services. To assist us in improving patient care, this report was composed using standard report templates and voice recognition software. Therefore, it may contain abnormal punctuation, insertions and/or omissions. Occasional wrong-word or sound-alike substitutions may occur. Though we review the report and make efforts to correct it, we do recommend that the report be read carefully in proper context to recognize any text inaccuracies. Dictated by: John Paagn M.D. on 05/29/2021 at 8:57 Approved by: John Pagan M.D. on 05/29/2021 at 9:01
--- NOTE | 2021-05-29 07:39 | ED.ABDPAIN ---
HPI - Abdominal Pain General Chief Complaint: Abdominal Pain Stated Complaint: low abd pain/had a seizure 3 min ago/preg?? Time Seen by Provider: 05/29/21 07:17 History of Present Illness HPI narrative: 30F smoker with history of pseudoseizures presents with her significant other and a chief complaint of lower abdominal cramping and discomfort, worse on the left with possibly some spotting. She states that she has been emotionally labile for quite some time and had been recently seen and evaluated due to an increase in her pseudo-seizure activity. She denies any fever or chills. She has had no nausea or vomiting. She has had increased urination in the morning for a few weeks as well. She denies any dysuria or urgency and she has had no fever or chills. She took a test this morning and found it was positive. She thinks her last normal period was maybe 2 or 3 months ago. Additionally she claims she has chest pressure, heaviness and sharp pain that seems to be worse when sitting forward and taking a deep breath. She denies any shortness of breath. She is not dizzy nor weak or lightheaded. She denies any exertional component and is not currently having pain Related Data Previous Rx's Medication Instructions Recorded amoxicillin 875 mg-potassium 1 tab PO BID #20 tab 02/21/21 clavulanate 125 mg tablet (Augmentin) hyoscyamine sulfate 0.125 mg tablet 0.125 mg PO BID-QID PRN #20 tab 02/21/21 ondansetron 4 mg disintegrating 4 mg PO TID-QID PRN #10 tab 02/21/21 tablet fluconazole 150 mg tablet 150 mg PO .qday #2 tab 03/07/21 (Diflucan) hydroxyzine HCl 25 mg tablet 25 mg PO TID PRN #20 tab 04/23/21 ondansetron 4 mg disintegrating 4 mg PO Q8H PRN #10 tab 04/23/21 tablet pantoprazole 40 mg tablet,delayed 40 mg PO DAILY #30 tab 04/23/21 release (Protonix) sucralfate 1 gram tablet 1 g PO BID #20 tab 04/23/21 prenat.vits,jonathan,[id number] 1 tab PO DAILY #30 tab 05/29/21 Allergies Allergy/AdvReac Type Severity Reaction Status Date / Time No Known Drug Allergies Allergy Verified 04/23/21 09:43 Review of Systems Review of Systems Narrative: GENERAL: Denies chills, fatigue, malaise, fever, sweats. HEENT: Denies sinus pain, ear pain, sore throat, difficulty swallowing, dizziness. RESPIRATORY: Denies dyspnea, cough, wheezing, hemoptysis, sputum. CARDIOVASCULAR: D see HP GASTROINTESTINAL: See HPI : See HPI MUSCULOSKELETAL: denies weakness, joint pain, or bony pain SKIN: Denies rash, skin lesions, or other NEUROLOGIC: Denies weakness, headache, numbness, change in speech, confusion, seizures, incoordination. PSYCHIATRIC: No concerning psychosocial issues. 12 point review of systems is negative except for those stated above Patient History Social History Smoking Status: Current every day smoker Smoking Status: Current every day smoker tobacco type: vaping alcohol intake frequency: 0-2 drinks per day Substance Use Type: marijuana Exam Narrative Exam Narrative: GENERAL: [26] year old patient appears stated age. Well-developed patient, in mild distress. Tearful, anxious, obviously uncomfortable HEAD: Atraumatic. Normocephalic. EYES: Pupils equal round and reactive. Extraocular motions intact. No scleral icterus. No injection or drainage. ENT: Nose without bleeding, purulent drainage. Throat without erythema, tonsillar hypertrophy or exudate. Airway patent. NECK: Trachea midline. Non tender CARDIOVASCULAR: Regular rate and rhythm without murmurs, gallops, or rubs. RESPIRATORY: Clear to auscultation. Breath sounds equal bilaterally. No wheezes, rales, or rhonchi. GASTROINTESTINAL: Abdomen soft, mild reproducible left lower quadrant pain nondistended. EXTREMITIES: No edema or joint tenderness. BACK: Nontender without deformity or crepitance. No flank tenderness. NEURO: AOx3. SKIN: No rash or erythema of visible areas Initial Vital Signs Initial Vital Signs: Vital Signs Pulse Rate 87 05/29/21 07:30 Respiratory Rate 20 05/29/21 07:30 Blood Pressure 118/78 05/29/21 07:30 Pulse Oximetry 97 05/29/21 07:30 Course Orders Ordered: Discontinued Medications Sodium Chloride (Normal Saline 0.9%) 1,000 mls @ 1,000 mls/hr IV BOLUS ONE Stop: 05/29/21 08:31 Last Infusion: 05/29/21 10:00 Dose: 0 mls/hr Documented by: Admin: 05/29/21 08:45 Dose: 1,000 mls/hr Documented by: DELORES Vital Signs Vital signs: Vital Signs - 8 hr 05/29/21 07:30 05/29/21 07:40 05/29/21 08:00 Temperature 98.0 F Pulse Rate 87 89 80 Respiratory Rate 20 18 18 Blood Pressure 118/78 118/78 114/76 Pulse Oximetry 97 99 100 05/29/21 09:00 05/29/21 09:30 Temperature Pulse Rate 68 86 Respiratory Rate 20 20 Blood Pressure 114/68 113/69 Pulse Oximetry 100 100 MDM - Abdominal Pain Lab Data Result diagrams: 05/29/21 08:05 05/29/21 08:05 Labs: Lab Results 05/29/21 05/29/21 05/29/21 Range/Units 08:05 08:05 08:05 WBC 9.3 (4.5-11.0) X10^3/uL RBC 4.49 (4.0-5.2) X10^6/uL Hgb 13.6 (12.0-16.0) g/dL Hct 39.6 (36-46) % MCV 88.2 (80-100) fL MCH 30.3 (26-34) PG MCHC 34.4 (30-36) % RDW 14.1 (11.6-14.8) % Plt Count 298 (150-400) X10^3/uL Neut % (Auto) 65.7 (50-75) % Lymph % (Auto) 24.8 L (25-40) % Candler % (Auto) 6.5 (3-14) % Eos % (Auto) 2.0 (2-4) % Baso % (Auto) 1.0 (0-2) % Neut # (Auto) 6100 (6444-0445) /uL Lymph # (Auto) 2300 (6670-2172) /uL Candler # (Auto) 600 (0-900) /uL Eos # (Auto) 200 (0-450) /uL Baso # (Auto) 100 (0-100) /uL Sodium 136 L (137-145) mmol/L Potassium 4.1 (3.4-5.1) mmol/L Chloride 104 (98-107) mmol/L Carbon Dioxide 24 (22-32) mmol/L BUN 10 (7-17) mg/dL Creatinine 0.76 (0.52-1.04) mg/dL Estimated GFR > 60.0 (>60) mL/min BUN/Creatinine Ratio 13.2 (6-22) Glucose 98 (70-100) mg/dL Calcium 9.4 (8.4-10.2) mg/dL Magnesium 2.0 (1.6-2.3) mg/dL Total Bilirubin 0.9 (0.2-1.3) mg/dL AST 30 (14-36) IU/L ALT 24 (<35) IU/L Alkaline Phosphatase 79 (38-126) U/L Total Creatine Kinase (30-135) U/L CK-MB (CK-2) (<2.37) ng/mL CK-MB (CK-2) Rel Index (1.5-5.0) % Troponin I (0.01-0.034) ng/mL NT-Pro-B Natriuret Pep 33 (<125) pg/mL Total Protein 8.6 H (6.3-8.2) g/dL Albumin 4.8 (3.5-5.0) g/dL Globulin 3.8 (1.7-4.1) g/dL Albumin/Globulin Ratio 1.3 (1.0-2.8) HCG, Quant 6289.0 mIU/mL Blood Type A Positive 05/29/21 Range/Units 08:05 WBC (4.5-11.0) X10^3/uL RBC (4.0-5.2) X10^6/uL Hgb (12.0-16.0) g/dL Hct (36-46) % MCV (80-100) fL MCH (26-34) PG MCHC (30-36) % RDW (11.6-14.8) % Plt Count (150-400) X10^3/uL Neut % (Auto) (50-75) % Lymph % (Auto) (25-40) % Candler % (Auto) (3-14) % Eos % (Auto) (2-4) % Baso % (Auto) (0-2) % Neut # (Auto) (6030-0691) /uL Lymph # (Auto) (7718-5870) /uL Candler # (Auto) (0-900) /uL Eos # (Auto) (0-450) /uL Baso # (Auto) (0-100) /uL Sodium (137-145) mmol/L Potassium (3.4-5.1) mmol/L Chloride (98-107) mmol/L Carbon Dioxide (22-32) mmol/L BUN (7-17) mg/dL Creatinine (0.52-1.04) mg/dL Estimated GFR (>60) mL/min BUN/Creatinine Ratio (6-22) Glucose (70-100) mg/dL Calcium (8.4-10.2) mg/dL Magnesium (1.6-2.3) mg/dL Total Bilirubin (0.2-1.3) mg/dL AST (14-36) IU/L ALT (<35) IU/L Alkaline Phosphatase (38-126) U/L Total Creatine Kinase 152 H (30-135) U/L CK-MB (CK-2) < 0.22 (<2.37) ng/mL CK-MB (CK-2) Rel Index 0.1 L (1.5-5.0) % Troponin I < 0.012 (0.01-0.034) ng/mL NT-Pro-B Natriuret Pep (<125) pg/mL Total Protein (6.3-8.2) g/dL Albumin (3.5-5.0) g/dL Globulin (1.7-4.1) g/dL Albumin/Globulin Ratio (1.0-2.8) HCG, Quant mIU/mL Blood Type Point of care testing: Point of Care Testing Test Results Positive Urine Dip Bedside Urine Glucose Negative Bedside Urine Bilirubin - Negative Bedside Urine Ketone - Negative Urine Specific Victor 1.025 Bedside Urine Occult Blood - Negative Bedside Urine pH 6.0 Bedside Urine Protein - Negative Bedside Urine Urobilinogen - Negative Bedside Urine Nitrite - Negative Bedside Urine Leukocytes - Negative Esterase Imaging Data US - CAREER AND TECHNOLOGY EDUCATION TEACHER: Radiologist's Impression: Chart Viewer Diagnostics Subcategory All Activity ??:?? All Time ??:?? All Subcategories Filter Laboratory Imaging Microbiology Pathology Blood Bank Tests Cardiovascular Other Specialty DATE TYPE STATUS REF RANGE/AUTHOR Hx Today 07:32 Ultrasound Signed Call,John 04/23/21 09:43 Chest X-Ray Signed Agnieszka Marreroon 03/07/21 18:[address] Signed Joe Curran 03/07/21 18:30 Chest X-Ray Signed Lynda Mcgarry 02/21/21 11:23 Abdomen/Pelvis CT Signed Stephanie Archibald 02/21/21 09:48 Abdomen Ultrasound Signed Bakari Palomino Candace N ED 30, F?1990 MRN#? [id number] REG ER,?Main ED??R10?? 167.64cm 95.254kg BMI: 33.9kg/m? Abdominal Pain Acc#? [id number] Resus Status Not Ordered No Hx Avail Special Indicators No Data to Display Home Meds Not Confirmed Prescription Monitoring Program MEDICATIONS (INSTRUCTIONS) LAST TAKEN Active ??amoxicillin-pot clavulanate [Augmentin] ??1 tabPOBID#20 tab ??fluconazole [Diflucan] ??150 mgPO.qday#2 tab ??hydroxyzine HCl ??25 mgPOTIDPRN#20 tab ??hyoscyamine sulfate ??0.125 mgPOBID-QIDPRN#20 tab ??ondansetron ??4 juEND7MAHU#10 tab ??ondansetron ??4 mgPOTID-QIDPRN#10 tab ??pantoprazole [Protonix] ??40 mgPODAILY#30 tab ??sucralfate ??1 gPOBID#20 tab Allergies No Known Drug Allergies Problems ? ONSET Pelvic pain affecting Atypical chest pain Vital Signs Today 07:40 BP 118/78? Pulse 89? Resp 18? Temp 98.0 F? O2 Sat 99? Delivery Room Air? Diagnostics Reports Gem Seymour N??30??F??1990 ? Allergy/Adv: No Known Drug Allergies (More??) Close Ultrasound (Signed) Vamshi Paganwn - 05/29/21 Chest X-Ray (Signed) Agnieszka Marreroon - 04/23/[address] (Signed) Joe Curran - 03/07/21 Chest X-Ray (Signed) Lynda Mcgarry - 03/07/21 Abdomen/Pelvis CT (Signed) Stephanie Archibald - 02/21/21 Abdomen Ultrasound (Signed) Bakari Palomino - 02/21/21 Launch?[address] [address] Ultrasound Report Signed Patient: Gem Seymour MR#: [id number] : 1990 Acct:[id number] Age/Sex: 30 / F Date of Service: 05/29/21 Loc: ED Accession Number: [id number] ?? Procedure: US OB <= 14 weeks fetus Ordering Provider: Demarcus Sierra D.O. PROCEDURE:? US OB <= 14 WEEKS FETUS ? INDICATIONS:? LLQ PAIN ? OUTSIDE/PRIOR DATING DATA:? First dating scan (date and location):? 05/29/2021.? Estimated date of delivery (BRIAN) from first dating scan:? Approximately 01/24/2022. ? TECHNIQUE:? Real-time scanning was performed of the fetus and maternal pelvic organs, with image documentation.? Endovaginal scanning was also performed to better visualize the fetus and maternal ovaries.? ? COMPARISON:? None. ? FINDINGS:? ? Embryo:? Intrauterine gestational sac.? Mean gestational sac diameter 0.9 cm, corresponding to estimated gestational age of 5 weeks 5 days.? No pole at this time. Heart rate:? Not detected at this time. ? Maternal organs:? Right ovary demonstrates a large anechoic cyst with a thin septation measuring 6.4 cm. ? ? IMPRESSION:? 1. Intrauterine gestational sac at approximately 5 weeks 5 days.? No pole at this time. ? 2. No perigestational hemorrhage. ? 3. Right ovary large minimally complex cyst measuring 6.4 cm.? Recommend attention on follow-up OB ultrasound. ? ? Recommend follow-up OB ultrasound. ? We strive to produce accurate, complete, and clear reports of imaging services. To assist us in improving patient care, this report was composed using standard report templates and voice recognition software. Therefore, it may contain abnormal punctuation, insertions and/or omissions. Occasional wrong-word or sound-alike substitutions may occur. Though we review the report and make efforts to correct it, we do recommend that the report be read carefully in proper context to recognize any text inaccuracies. ? ? ? Dictated by: John Pagan M.D. on 05/29/2021 at 8:57 ? ? Approved by: John Pagan M.D. on 05/29/2021 at 9:01 ? Chart Viewer Diagnostics Subcategory All Activity ??:?? All Time ??:?? All Subcategories Filter Laboratory Imaging Microbiology Pathology Blood Bank Tests Cardiovascular Other Specialty DATE TYPE STATUS REF RANGE/AUTHOR Hx Today 07:32 Ultrasound Signed John Pagan 04/23/21 09:43 Chest X-Ray Signed ElidaEverton 03/07/21 18:[address] Signed Joe Curran 03/07/21 18:30 Chest X-Ray Signed Lynda Mcgarry 02/21/21 11:23 Abdomen/Pelvis CT Signed Stephanie Archibald 02/21/21 09:48 Abdomen Ultrasound Signed Bakari Palomino Candace N ED 30, F?1990 MRN#? [id number] REG ER,?Main ED??R10?? 167.64cm 95.254kg BMI: 33.9kg/m? Abdominal Pain Acc#? [id number] Resus Status Not Ordered No Hx Avail Special Indicators No Data to Display Home Meds Not Confirmed Prescription Monitoring Program MEDICATIONS (INSTRUCTIONS) LAST TAKEN Active ??amoxicillin-pot clavulanate [Augmentin] ??1 tabPOBID#20 tab ??fluconazole [Diflucan] ??150 mgPO.qday#2 tab ??hydroxyzine HCl ??25 mgPOTIDPRN#20 tab ??hyoscyamine sulfate ??0.125 mgPOBID-QIDPRN#20 tab ??ondansetron ??4 kzTYI7OFWL#10 tab ??ondansetron ??4 mgPOTID-QIDPRN#10 tab ??pantoprazole [Protonix] ??40 mgPODAILY#30 tab ??sucralfate ??1 gPOBID#20 tab Allergies No Known Drug Allergies Problems ? ONSET Pelvic pain affecting Atypical chest pain Vital Signs Today 07:40 BP 118/78? Pulse 89? Resp 18? Temp 98.0 F? O2 Sat 99? Delivery Room Air? Diagnostics Reports Gem Seymour N??30??F??1990 ? Allergy/Adv: No Known Drug Allergies (More??) Close Ultrasound (Signed) John Pagan - 05/29/21 Chest X-Ray (Signed) Everton Marrero - 04/23/[address] (Signed) Joe Curran - 03/07/21 Chest X-Ray (Signed) Lynda Mcgarry - 03/07/21 Abdomen/Pelvis CT (Signed) Stephanie Archibald - 02/21/21 Abdomen Ultrasound (Signed) Bakari Palomino - 02/21/21 Launch?[address] [address] Ultrasound Report Signed Patient: Gem Seymour MR#: [id number] : 1990 Acct:[id number] Age/Sex: 30 / Date of Service: 05/29/21 Loc: ED Accession Number: [id number] ?? Procedure: US OB <= 14 weeks fetus Ordering Provider: Demarcus Sierra D.O. PROCEDURE:? US OB <= 14 WEEKS FETUS ? INDICATIONS:? LLQ PAIN ? OUTSIDE/PRIOR DATING DATA:? First dating scan (date and location):? 05/29/2021.? Estimated date of delivery (BRIAN) from first dating scan:? Approximately 01/24/2022. ? TECHNIQUE:? Real-time scanning was performed of the fetus and maternal pelvic organs, with image documentation.? Endovaginal scanning was also performed to better visualize the fetus and maternal ovaries.? ? COMPARISON:? None. ? FINDINGS:? ? Embryo:? Intrauterine gestational sac.? Mean gestational sac diameter 0.9 cm, corresponding to estimated gestational age of 5 weeks 5 days.? No pole at this time. Heart rate:? Not detected at this time. ? Maternal organs:? Right ovary demonstrates a large anechoic cyst with a thin septation measuring 6.4 cm. ? ? IMPRESSION:? 1. Intrauterine gestational sac at approximately 5 weeks 5 days.? No pole at this time. ? 2. No perigestational hemorrhage. ? 3. Right ovary large minimally complex cyst measuring 6.4 cm.? Recommend attention on follow-up OB ultrasound. ? ? Recommend follow-up OB ultrasound. ? We strive to produce accurate, complete, and clear reports of imaging services. To assist us in improving patient care, this report was composed using standard report templates and voice recognition software. Therefore, it may contain abnormal punctuation, insertions and/or omissions. Occasional wrong-word or sound-alike substitutions may occur. Though we review the report and make efforts to correct it, we do recommend that the report be read carefully in proper context to recognize any text inaccuracies. ? ? ? Dictated by: John Pagan M.D. on 05/29/2021 at 8:57 ? ? Approved by: John Pagan M.D. on 05/29/2021 at 9:01 ? MDM Narrative Medical decision making narrative: 22-year-old female with very reassuring history, physical exam, labs and imaging. Chest pain evaluated for ischemia, thought unlikely given lack of classic presenting symptoms, nonischemic EKG and negative troponin. She has been considered for other life-threatening causes of chest pain including pulmonary embolism and pneumonia but considered unlikely given history, physical, vitals. Patient pain improved, likely physiologic in nature. US is reassuring, no evidence of ectopic or other surgical problem. Patient given extensive return precautions and questions have been answered to her apparent satisfaction. Discharge Plan Departure Patient Disposition: Home Clinical Impression: Pelvic pain affecting , Atypical chest pain Instructions: DI for -- Discomforts and Remedies Activity Restrictions/Additional Instructions: *You have been diagnosed with [pelvic pain in . Your labs, history, physical exam, ultrasound and EKG are very reassuring. ] *What to do: *Please continue to take your regular medications as directed. [x ] New medication prescriptions sent to your pharmacy: [[facility] ] [ ] New medication written as a paper prescription [ ] No new medications given *Please follow up with your primary care provider in 2-3 days, call for an appointment. Let them know you were seen in the Emergency Department and that we ask that you be seen in follow up. We will electronically transmit a record of today's note if your PCP is in our system *If you do not have a primary care provider please contact the [facility] Resource line at [phone]. They will ask some questions about your medical history and help get you set up with a doctor in the community. *Return to Emergency Department if you should have any new, worsening or concerning symptoms, such as [fever greater than 101 F, shaking chills, worsening pain, persistent vomiting or other bothersome symptoms] Prescriptions: New prenat.vits,jonathan,[id number] Tablet 1 tab PO DAILY Qty: 30 0RF No Action sucralfate 1 gram tablet 1 g PO BID Qty: 20 0RF pantoprazole [Protonix] 40 mg tablet,delayed release (DR/EC) 40 mg PO DAILY Qty: 30 0RF hydroxyzine HCl 25 mg tablet 25 mg PO TID PRN (Reason: anxiety) Qty: 20 0RF ondansetron 4 mg tablet,disintegrating 4 mg PO Q8H PRN (Reason: nausea and vomiting) Qty: 10 0RF hyoscyamine sulfate 0.125 mg tablet 0.125 mg PO BID-QID PRN (Reason: dyspepsia) Qty: 20 0RF ondansetron 4 mg tablet,disintegrating 4 mg PO TID-QID PRN (Reason: nausea and vomiting) Qty: 10 0RF amoxicillin-pot clavulanate [Augmentin] 875-125 mg tablet 1 tab PO BID Qty: 20 0RF fluconazole [Diflucan] 150 mg tablet 150 mg PO .qday Qty: 2 0RF Rx Instructions: Take one tablet every other day. Referrals: Scuddy,MD Cici [Physician] - Stand Alone Forms: Work Release Note
[2021-05-29 07:40] VITALS: BP 118/78; PULSE 89; RESP 18; TEMP 36.7; O2SAT 99; BMI 33.9
[2021-05-29 08:00] VITALS: BP 114/76; PULSE 80; RESP 18; O2SAT 100
[2021-05-29 08:16] LABS: Add Manual Diff / Slide Review NO; Basophils Absolute Auto 100 /uL (0-100); Eosinophils Absolute Auto 200 /uL (0-450); Hematocrit 39.6 % (36-46); Hemoglobin 13.6 g/dL (12.0-16.0); Lymphocytes Absolute Auto 2300 /uL (1100-4500); Lymphocytes Percent Auto 24.8 % (25-40); Mean Corpuscular HGB Conc 34.4 % (30-36); Mean Corpuscular Hemoglobin 30.3 PG (26-34); Mean Corpuscular Volume 88.2 fL (80-100); Monocytes Absolute Auto 600 /uL (0-900); Monocytes Percent Auto 6.5 % (3-14); Neutrophils Absolute Auto 6100 /uL (1500-7000); Neutrophils Percent Auto 65.7 % (50-75); Platelet Count 298 X10^3/uL (150-400); Red Blood Cell Count 4.49 X10^6/uL (4.0-5.2); Red Cell Distribution Width 14.1 % (11.6-14.8); White Blood Cell Count 9.3 X10^3/uL (4.5-11.0)
[2021-05-29 08:32] LABS: Alanine Aminotransferase 24 IU/L (<35); Albumin 4.8 g/dL (3.5-5.0); Albumin Globulin Ratio 1.3 (1.0-2.8); Alkaline Phosphatase 79 U/L (38-126); Aspartate Aminotransferase 30 IU/L (14-36); BUN Creatinine Ratio 13.2 (6-22); Bilirubin Total 0.9 mg/dL (0.2-1.3); Blood Urea Nitrogen 10 mg/dL (7-17); Calcium 9.4 mg/dL (8.4-10.2); Carbon Dioxide 24 mmol/L (22-32); Chloride 104 mmol/L (98-107); Creatine Kinase 152 U/L (30-135); Estimated Glomerular Filt Rate > 60.0 mL/min (>60); Globulin 3.8 g/dL (1.7-4.1); Glucose 98 mg/dL (70-100); HEMOLYSIS < 15 (0-50); Potassium 4.1 mmol/L (3.4-5.1); Sodium 136 mmol/L (137-145); Total Protein 8.6 g/dL (6.3-8.2)
[2021-05-29 08:40] LABS: NT-proBNP (BNP-Adult 18+) 33 pg/mL (<125)
[2021-05-29 08:44] LABS: Troponin I < 0.012 ng/mL (0.01-0.034)
[2021-05-29] MEDS: SODIUM CHLORIDE 0.9% 1,000 ML 1000 ML IV (08:45)
[2021-05-29 08:49] LABS: CKMB % Relative Index 0.1 % (1.5-5.0); Creatine Kinase MB < 0.22 ng/mL (<2.37)
[2021-05-29 09:00] VITALS: BP 114/68; PULSE 68; RESP 20; O2SAT 100
[2021-05-29 09:30] VITALS: BP 113/69; PULSE 86; RESP 20; O2SAT 100
--- NOTE | 2021-05-31 14:22 | CM.SWNOTE ---
POWER CHISEL OPERATOR F/U note POWER CHISEL OPERATOR attempt to call patient for ED POWER CHISEL OPERATOR f/u call but the call to the listed number does not go through. POWER CHISEL OPERATOR to f/u with patient at next presentation to the ED. DAVEY Rogers
== END 2021-05-29 10:00 | disposition home or self-care (01) ==
PROVIDERS: Emergency Provider Emergency Medicine
DX: O26.891 Other specified pregnancy related conditions, first trimester (principal); R10.2 Pelvic and perineal pain; R07.89 Other chest pain; Z3A.01 Less than 8 weeks gestation of pregnancy
CPT/HCPCS: 36415; 76801; 76817; 80053; 81003; 81025; 82550; 82553; 83735; 83880; 84484; 84702; 85025; 86900; 86901; 93005; 93010; 96360; 99284

== ENCOUNTER 2021-06-17 16:50 | Emergency (ER) | payer OTHER, SELFPAY ==
[2021-06-17 16:52] VITALS: BP 101/64; PULSE 84; RESP 18; TEMP 36.4; O2SAT 99; BMI 36.0
[2021-06-17] MEDS: ONDANSETRON 4 MG/2 ML INJ IV (17:21)
[2021-06-17] MEDS: SODIUM CHLORIDE 0.9% 1,000 ML 1000 ML IV (17:22)
[2021-06-17 17:34] LABS: Add Manual Diff / Slide Review NO; Basophils Absolute Auto 100 /uL (0-100); Basophils Percent Auto 0.8 % (0-2); Eosinophils Absolute Auto 100 /uL (0-450); Eosinophils Percent Auto 1.4 % (2-4); Hematocrit 36.9 % (36-46); Hemoglobin 12.9 g/dL (12.0-16.0); Lymphocytes Absolute Auto 2500 /uL (1100-4500); Lymphocytes Percent Auto 24.6 % (25-40); Mean Corpuscular HGB Conc 34.9 % (30-36); Mean Corpuscular Hemoglobin 30.3 PG (26-34); Mean Corpuscular Volume 86.9 fL (80-100); Monocytes Absolute Auto 900 /uL (0-900); Monocytes Percent Auto 9.1 % (3-14); Neutrophils Absolute Auto 6600 /uL (1500-7000); Neutrophils Percent Auto 64.1 % (50-75); Platelet Count 273 X10^3/uL (150-400); Red Blood Cell Count 4.25 X10^6/uL (4.0-5.2); Red Cell Distribution Width 13.7 % (11.6-14.8); White Blood Cell Count 10.3 X10^3/uL (4.5-11.0)
[2021-06-17 17:40] LABS: BUN Creatinine Ratio 10.8 (6-22); Blood Urea Nitrogen 7 mg/dL (7-17); Calcium 9.3 mg/dL (8.4-10.2); Carbon Dioxide 26 mmol/L (22-32); Chloride 101 mmol/L (98-107); Estimated Glomerular Filt Rate > 60.0 mL/min (>60); Glucose 76 mg/dL (70-100); HEMOLYSIS < 15 (0-50); Lipase 91 U/L (23-300); Potassium 3.7 mmol/L (3.4-5.1); Sodium 134 mmol/L (137-145)
--- NOTE | 2021-06-17 18:39 | ED_ITS ---
HPI - Nausea/Vomiting/Diarrhea General Chief complaint: Nausea/Vomiting/Diarrhea Stated complaint: BLACKING OUT 8WKS NOT KEEPING THINGS OUT Time Seen by Provider: 06/17/21 18:16 Source: patient Mode of arrival: Wheelchair History of Present Illness HPI Narrative: Patient here with . Complaints of nonbloody vomiting for the past 1 week. She did see her OBGYN/extrusion press supervisor services for the 1st time 2 days ago in [place]. Expected due date January 23, 2022. Patient is . Has felt generalized malaise due to poor oral intake. Has not described any nausea medication. floor coverings installer/extrusion press supervisor service is aware of patient's vomiting. Patient is on vitamins. No fall or injury. No diarrhea. No cough cold congestion or fev er. Patient did have ultrasound here earlier this month. Please see below. Denies abdominal pain or cramping. Patient is being treated for UTI by her extrusion press supervisor services. Related Data Previous Rx's Medication Instructions Recorded amoxicillin 875 mg-potassium 1 tab PO BID #20 tab 02/21/21 clavulanate 125 mg tablet (Augmentin) hyoscyamine sulfate 0.125 mg tablet 0.125 mg PO BID-QID PRN #20 tab 02/21/21 ondansetron 4 mg disintegrating 4 mg PO TID-QID PRN #10 tab 02/21/21 tablet fluconazole 150 mg tablet 150 mg PO .qday #2 tab 03/07/21 (Diflucan) hydroxyzine HCl 25 mg tablet 25 mg PO TID PRN #20 tab 04/23/21 ondansetron 4 mg disintegrating 4 mg PO Q8H PRN #10 tab 04/23/21 tablet pantoprazole 40 mg tablet,delayed 40 mg PO DAILY #30 tab 04/23/21 release (Protonix) sucralfate 1 gram tablet 1 g PO BID #20 tab 04/23/21 prenat.vits,jonathan,ifn-zsra-vzqaw 1 tab PO DAILY #30 tab 05/29/21 ondansetron 4 mg disintegrating 4 mg PO Q8H PRN #10 tab 06/17/21 tablet Allergies Allergy/AdvReac Type Severity Reaction Status Date / Time No Known Drug Allergies Allergy Verified 06/17/21 16:56 Review of Systems Review of Systems Narrative: GENERAL: Denies chills, fatigue, malaise, fever, sweats. HEENT: Denies sinus pain, ear pain, sore throat RESPIRATORY: Denies dyspnea, cough CARDIOVASCULAR: Denies chest pain, palpitations GASTROINTESTINAL: Positive for nausea, vomiting, negative for abdominal pain : Denies dysuria, frequency, hematuria MUSCULOSKELETAL: denies muscle or bony pain SKIN: Denies rash, skin lesions NEUROLOGIC: Denies weakness, numbness ROS Unobtainable: All systems reviewed & are unremarkable except as noted in HPI and below Patient History Social History Smoking Status: Former smoker Smoking Status: Former smoker tobacco type: vaping alcohol intake frequency: 0-2 drinks per day Substance Use Type: does not use Exam Narrative Exam Narrative: GENERAL: in no distress, not toxic not dyspneic HEAD: Normocephalic. EYES: Pupils equal round No scleral icterus. NECK: Trachea midline. CARDIOVASCULAR: Regular rate and rhythm without murmurs RESPIRATORY: Clear to auscultation. Breath sounds equal bilaterally. No wheezes, rales, or rhonchi. GASTROINTESTINAL: Abdomen soft, non-tender, bowel sounds present, no peritoneal signs. EXTREMITIES: No gross deformities. BACK: No flank tenderness. NEURO: AOx4. SKIN: Warm and dry PSYCH: Not anxious, is cooperative Initial Vital Signs Initial Vital Signs: Vital Signs Temperature 97.5 F L 06/17/21 16:52 Pulse Rate 84 06/17/21 16:52 Respiratory Rate 18 06/17/21 16:52 Blood Pressure 101/64 06/17/21 16:52 Pulse Oximetry 99 06/17/21 16:52 Course Course Course Narrative: No new issues during course of stay. Work note is provided for patient and . Orders Ordered: Discontinued Medications Sodium Chloride (Normal Saline 0.9%) 1,000 mls @ 1,000 mls/hr IV BOLUS ONE Stop: 06/17/21 18:00 Last Infusion: 06/17/21 19:32 Dose: 0 mls/hr Documented by: Admin: 06/17/21 17:22 Dose: 1,000 mls/hr Documented by: NEEL Ondansetron HCl (Ondansetron 4 Mg/2 Ml Inj) 4 mg IV NOW ONE Stop: 06/17/21 17:01 Last Admin: 06/17/21 17:21 Dose: 4 mg Documented by: NEEL Reevaluation(s) Reevaluation #1: Feeling much better during course of stay. No nausea or vomiting. Received Zofran as well as IV fluids. at bedside to drive. Return precautions reviewed with them. They desire discharge home. Time: 19:59 Vital Signs Vital signs: Vital Signs - 8 hr 06/17/21 20:03 Pulse Rate 84 Respiratory Rate 16 Blood Pressure 110/76 Pulse Oximetry 100 MDM - Nausea/Vomiting/Diarrhea Differential Diagnosis Differential diagnosis: Likely dehydration and other (Hyperemesis ) Medical Records Medical records narrative: [address] [address] Ultrasound Report Signed Patient: Gem Seymour MR#: [id number] : 1990 Acct:[id number] Age/Sex: 30 / F Date of Service: 05/29/21 Loc: ED Accession Number: [id number] ?? Procedure: US OB <= 14 weeks fetus Ordering Provider: Demarcus Sierra D.O. PROCEDURE:? US OB <= 14 WEEKS FETUS ? INDICATIONS:? LLQ PAIN ? OUTSIDE/PRIOR DATING DATA:? First dating scan (date and location):? 05/29/2021.? Estimated date of delivery (BRIAN) from first dating scan:? Approximately 01/25/20. ? TECHNIQUE:? Real-time scanning was performed of the fetus and maternal pelvic organs, with image documentation.? Endovaginal scanning was also performed to better visualize the fetus and maternal ovaries.? ? COMPARISON:? None. ? FINDINGS:? ? Embryo:? Intrauterine gestational sac.? Mean gestational sac diameter 0.9 cm, corresponding to estimated gestational age of 5 weeks 5 days.? No pole at this time. Heart rate:? Not detected at this time. ? Maternal organs:? Right ovary demonstrates a large anechoic cyst with a thin septation measuring 6.4 cm. ? ? IMPRESSION:? 1. Intrauterine gestational sac at approximately 5 weeks 5 days.? No pole at this time. ? 2. No perigestational hemorrhage. ? 3. Right ovary large minimally complex cyst measuring 6.4 cm.? Recommend attention on follow-up OB ultrasound. ? ? Recommend follow-up OB ultrasound. ? We strive to produce accurate, complete, and clear reports of imaging services. To assist us in improving patient care, this report was composed using standard report templates and voice recognition software. Therefore, it may contain abnormal punctuation, insertions and/or omissions. Occasional wrong-word or sound-alike substitutions may occur. Though we review the report and make efforts to correct it, we do recommend that the report be read carefully in proper context to recognize any text inaccuracies. ? ? ? Dictated by: John Pagan M.D. on 05/29/2021 at 8:57 ? ? Approved by: John Pagan M.D. on 05/29/2021 at 9:01 ? Lab Data Result diagrams: 06/17/21 17:15 06/17/21 17:15 Labs: Lab Results 06/17/21 06/17/21 06/17/21 Range/Units 17:15 17:15 17:15 WBC 10.3 (4.5-11.0) X10^3/uL RBC 4.25 (4.0-5.2) X10^6/uL Hgb 12.9 (12.0-16.0) g/dL Hct 36.9 (36-46) % MCV 86.9 (80-100) fL MCH 30.3 (26-34) PG MCHC 34.9 (30-36) % RDW 13.7 (11.6-14.8) % Plt Count 273 (150-400) X10^3/uL Neut % (Auto) 64.1 (50-75) % Lymph % (Auto) 24.6 L (25-40) % [place] % (Auto) 9.1 (3-14) % Eos % (Auto) 1.4 L (2-4) % Baso % (Auto) 0.8 (0-2) % Neut # (Auto) 6600 (2661-0878) /uL Lymph # (Auto) 2500 (0880-3530) /uL [place] # (Auto) 900 (0-900) /uL Eos # (Auto) 100 (0-450) /uL Baso # (Auto) 100 (0-100) /uL Sodium 134 L (137-145) mmol/L Potassium 3.7 (3.4-5.1) mmol/L Chloride 101 (98-107) mmol/L Carbon Dioxide 26 (22-32) mmol/L BUN 7 (7-17) mg/dL Creatinine 0.65 (0.52-1.04) mg/dL Estimated GFR > 60.0 (>60) mL/min BUN/Creatinine Ratio 10.8 (6-22) Glucose 76 (70-100) mg/dL Calcium 9.3 (8.4-10.2) mg/dL Lipase 91 (23-300) U/L MDM Narrative Medical decision making narrative: Appropriate for discharge home. No imaging indicated. Laboratory studies and exam reassuring. Return precautions reviewed patient. Patient does have follow-up with neurology for her pseudoseizures. Discharge Plan Departure Patient Disposition: Home Clinical Impression: Nausea and vomiting during Instructions: DI for Hyperemesis Gravidarum Activity Restrictions/Additional Instructions: See your OBGYN/extrusion press supervisor service within a week for recheck. Return if worsening questions or concerns. Continue home medications. Prescription for nausea has been provided for you. Prescriptions: New ondansetron 4 mg tablet,disintegrating 4 mg PO Q8H PRN (Reason: nausea and vomiting) Qty: 10 0RF No Action sucralfate 1 gram tablet 1 g PO BID Qty: 20 0RF pantoprazole [Protonix] 40 mg tablet,delayed release (DR/EC) 40 mg PO DAILY Qty: 30 0RF hydroxyzine HCl 25 mg tablet 25 mg PO TID PRN (Reason: anxiety) Qty: 20 0RF ondansetron 4 mg tablet,disintegrating 4 mg PO Q8H PRN (Reason: nausea and vomiting) Qty: 10 0RF prenat.vits,jonathan,vic-gxpv-gcmta Tablet 1 tab PO DAILY Qty: 30 0RF hyoscyamine sulfate 0.125 mg tablet 0.125 mg PO BID-QID PRN (Reason: dyspepsia) Qty: 20 0RF ondansetron 4 mg tablet,disintegrating 4 mg PO TID-QID PRN (Reason: nausea and vomiting) Qty: 10 0RF amoxicillin-pot clavulanate [Augmentin] 875-125 mg tablet 1 tab PO BID Qty: 20 0RF fluconazole [Diflucan] 150 mg tablet 150 mg PO .qday Qty: 2 0RF Rx Instructions: Take one tablet every other day. Stand Alone Forms: Work Release Note
[2021-06-17 20:03] VITALS: BP 110/76; PULSE 84; RESP 16; O2SAT 100
== END 2021-06-17 20:03 | disposition home or self-care (01) ==
PROVIDERS: Emergency Medicine; Emergency Provider Emergency Medicine
DX: O21.0 Mild hyperemesis gravidarum (principal); Z3A.08 8 weeks gestation of pregnancy
CPT/HCPCS: 36415; 80048; 83690; 85025; 96361; 96374; 99284; J2405

== ENCOUNTER 2021-06-27 22:49 | Emergency (ER) | payer OTHER, SELFPAY ==
[2021-06-27 22:59] VITALS: BP 157/92; PULSE 78; RESP 18; TEMP 36.6; O2SAT 100
[2021-06-27] MEDS: ONDANSETRON 4 MG/2 ML INJ (23:18)
--- NOTE | 2021-06-27 23:20 | DI.US.S_ITS ---
PROCEDURE: US OB <= 14 WEEKS FETUS INDICATIONS: PAIN OUTSIDE/PRIOR DATING DATA: Last menstrual period (LMP): Unknown. LMP-based estimated date of delivery (BRIAN): Unknown. First dating scan (date and location): 05/29/2021. Estimated date of delivery (BRIAN) from first dating scan: 01/24/2022. TECHNIQUE: Real-time scanning was performed of the fetus and maternal pelvic organs, with image documentation. Endovaginal scanning was also performed to better visualize the fetus and maternal ovaries. COMPARISON: [facility], OB <= 14 WEEKS FETUS, 05/29/2021, 8:25. [facility], , US OB < 14 WEEKS + OB TRANSVAG, 06/05/2021, 12:13. FINDINGS: Embryo: [place]-rump length is present measuring 9 weeks 5 days. No visualized subchorionic hemorrhage. Yolk sac is present. Heart rate: 169 beats per minute Maternal organs: Ovaries demonstrate a septated right ovarian cyst measuring 7.4 x 4.2 x 5.2 cm. This previously measured 6.4 cm without septation. IMPRESSION: Single live intrauterine measuring 9 weeks 5 days. Septated right ovarian cyst more prominent when compared to prior exam. We strive to produce accurate, complete, and clear reports of imaging services. To assist us in improving patient care, this report was composed using standard report templates and voice recognition software. Therefore, it may contain abnormal punctuation, insertions and/or omissions. Occasional wrong-word or sound-alike substitutions may occur. Though we review the report and make efforts to correct it, we do recommend that the report be read carefully in proper context to recognize any text inaccuracies. Dictated by: Stephanie Archibald M.D. on 06/28/2021 at 1:01 Approved by: Stephanie Archibald M.D. on 06/28/2021 at 1:04
[2021-06-27] MEDS: SODIUM CHLORIDE 0.9% 1,000 ML 1000 ML IV (23:22)
[2021-06-27 23:26] LABS: Add Manual Diff / Slide Review NO; Basophils Absolute Auto 100 /uL (0-100); Basophils Percent Auto 0.3 % (0-2); Eosinophils Absolute Auto 0 /uL (0-450); Hematocrit 36.9 % (36-46); Hemoglobin 12.7 g/dL (12.0-16.0); Lymphocytes Absolute Auto 900 /uL (1100-4500); Lymphocytes Percent Auto 5.3 % (25-40); Mean Corpuscular HGB Conc 34.5 % (30-36); Mean Corpuscular Hemoglobin 29.9 PG (26-34); Mean Corpuscular Volume 86.6 fL (80-100); Monocytes Absolute Auto 400 /uL (0-900); Monocytes Percent Auto 2.5 % (3-14); Neutrophils Absolute Auto 16200 /uL (1500-7000); Neutrophils Percent Auto 91.9 % (50-75); Platelet Count 278 X10^3/uL (150-400); Red Blood Cell Count 4.26 X10^6/uL (4.0-5.2); Red Cell Distribution Width 13.5 % (11.6-14.8); White Blood Cell Count 17.6 X10^3/uL (4.5-11.0)
[2021-06-27 23:33] LABS: Alanine Aminotransferase 31 IU/L (<35); Albumin 4.5 g/dL (3.5-5.0); Albumin Globulin Ratio 1.3 (1.0-2.8); Alkaline Phosphatase 50 U/L (38-126); Aspartate Aminotransferase 32 IU/L (14-36); BUN Creatinine Ratio 10.4 (6-22); Bilirubin Total 0.9 mg/dL (0.2-1.3); Blood Urea Nitrogen 5 mg/dL (7-17); Calcium 9.1 mg/dL (8.4-10.2); Carbon Dioxide 21 mmol/L (22-32); Chloride 104 mmol/L (98-107); Estimated Glomerular Filt Rate > 60.0 mL/min (>60); Globulin 3.6 g/dL (1.7-4.1); Glucose 120 mg/dL (70-100); Sodium 131 mmol/L (137-145); Total Protein 8.1 g/dL (6.3-8.2)
--- NOTE | 2021-06-27 23:39 | DI.US.S_ITS ---
PROCEDURE: US ABDOMEN COMPLETE INDICATIONS: PAIN TECHNIQUE: Real-time scanning was performed of the abdominal and retroperitoneal organs, with image documentation. COMPARISON: [facility], , US ABDOMEN LIMITED, 02/21/2021, 10:00. FINDINGS: Liver: Liver is normal in size and homogeneous in echotexture. Gallbladder: Sludge is present. Wall thickness is within normal limits measuring 1.6 mm. Biliary ducts: Intrahepatic bile ducts are non-dilated. Extrahepatic bile duct caliber measures 3.7 mm. Normal is 6-7 mm or less in diameter, or 10 mm or less post-cholecystectomy. Pancreas: Visualized portions of the pancreas are sonographically normal. Spleen: Spleen is normal in size and homogeneous in echotexture. Kidneys: Kidneys are normal in size and echotexture. Right kidney measures 11 point cm long; left kidney measures 11.6 cm long. No hydronephrosis or nephrolithiasis. No solid masses. Aorta: Visualized aorta is normal in caliber at less than 3 cm. Iliacs: Proximal common iliac arteries are not well seen. IVC: Intrahepatic inferior vena cava is not visualized. Miscellaneous: No free abdominal fluid. IMPRESSION: Gallbladder sludge without wall thickening. Dictated by: Stephanie Archibald M.D. on 06/28/2021 at 1:00 Approved by: Stephanie Archibald M.D. on 06/28/2021 at 1:01
[2021-06-27] MEDS: MORPHINE 4 MG/ML INJ IM (23:42)
--- NOTE | 2021-06-27 23:43 | PC.NURSE ---
Pt writhing in pain. Dr Franklin at bedside. Pt placed on monitoring tech. BP 156/97. FAST exam preformed by Dr Franklin, no bleeding noted on US. Morphine given per DAHLIA. SAMANTHA Baum at bedside for US
[2021-06-27 23:44] VITALS: PULSE 87; RESP 15; O2SAT 99
[2021-06-27 23:44] LABS: HEMOLYSIS 58 (0-50)
[2021-06-27 23:49] LABS: Lipase 40 U/L (23-300)
[2021-06-28] VITALS (7 sets, daily range): BP systolic 123–130; BP diastolic 67–73; PULSE 69–85; RESP 15–20; O2SAT 95–100
[2021-06-28] MEDS: HYDROMORPHONE 1 MG INJ 0.5 MG IV (00:20)
--- NOTE | 2021-06-28 00:27 | ED_ITS ---
HPI - Nausea/Vomiting/Diarrhea General Chief complaint: Nausea/Vomiting/Diarrhea Stated complaint: n/v, abd pain, 9 weeks Time Seen by Provider: 06/27/21 23:03 Source: patient Mode of arrival: Wheelchair History of Present Illness HPI Narrative: The patient is a 30-year-old female 1 presenting about 9 weeks severe abdominal pain. She says been hurting all day. She denies any vaginal bleeding no nausea or vomiting just overall severe pain. She has no chest pain or shortness of breath. It seems to be upper gastric a pain. She says she has been seen evaluated by a occupational therapy assist and had an ultrasound. He actually had a confirmed IUP with ultrasound on May 29 here in the emergency department Related Data Previous Rx's Medication Instructions Recorded amoxicillin 875 mg-potassium 1 tab PO BID #20 tab 02/21/21 clavulanate 125 mg tablet (Augmentin) hyoscyamine sulfate 0.125 mg tablet 0.125 mg PO BID-QID PRN #20 tab 02/21/21 ondansetron 4 mg disintegrating 4 mg PO TID-QID PRN #10 tab 02/21/21 tablet fluconazole 150 mg tablet 150 mg PO .qday #2 tab 03/07/21 (Diflucan) hydroxyzine HCl 25 mg tablet 25 mg PO TID PRN #20 tab 04/23/21 ondansetron 4 mg disintegrating 4 mg PO Q8H PRN #10 tab 04/23/21 tablet pantoprazole 40 mg tablet,delayed 40 mg PO DAILY #30 tab 04/23/21 release (Protonix) sucralfate 1 gram tablet 1 g PO BID #20 tab 04/23/21 prenat.vits,jonathan,[id number] 1 tab PO DAILY #30 tab 05/29/21 ondansetron 4 mg disintegrating 4 mg PO Q8H PRN #10 tab 06/17/21 tablet hydrocodone 5 mg-acetaminophen 325 1 tab PO Q6H PRN #10 tab 06/28/21 mg tablet Allergies Allergy/AdvReac Type Severity Reaction Status Date / Time No Known Drug Allergies Allergy Verified 06/17/21 16:56 Review of Systems Review of Systems Narrative: GENERAL: Denies chills, fatigue, malaise, fever, sweats, travel HEENT: Denies sinus pain, ear pain, sore throat, difficulty swallowing, neck pain RESPIRATORY: Denies dyspnea, cough, wheezing, hemoptysis, sputum. CARDIOVASCULAR: Denies chest pain, palpitations, orthopnea, edema GASTROINTESTINAL: See HPI : Denies dysuria, frequency, incontinence, hematuria, urinary retention, flank pain. MUSCULOSKELETAL: Denies weakness, joint pain, or bony pain SKIN: No rash, no erythema, no pruritus NEUROLOGIC: Denies weakness, dizziness, headache, numbness, change in speech, confusion PSYCHIATRIC: No concerning psychosocial issues. 12 point review of systems is negative except for those stated above and HPI Patient History Social History Smoking Status: Former smoker Smoking Status: Former smoker tobacco type: vaping alcohol intake frequency: 0-2 drinks per day Substance Use Type: does not use Exam Initial Vital Signs Initial Vital Signs: Vital Signs Temperature 98 F 06/27/21 22:59 Pulse Rate 78 06/27/21 22:59 Respiratory Rate 18 06/27/21 22:59 Blood Pressure 157/92 H 06/27/21 22:59 Pulse Oximetry 100 06/27/21 22:59 GENERAL: 30-year-old female appears to be in severe pain HEENT: Head atraumatic,EOMI, pupils reactive, face symmetric, moist mucous membranes CARDIOVASCULAR: Regular rate and rhythm without murmurs, rubs or gallops. RESPIRATORY: Breath sounds equal bilaterally, no wheezes rales or rhonchi. ABDOMEN: Soft, tender epigastric, or right upper quadrant pain no lower abdominal pain severely tender with very light touch all over : No CVA tenderness EXTREMITIES: Normal range of motion, no clubbing or edema. Neurovascularly intact NEUROLOGICAL: Alert and oriented x4.Normal gait and speech. SKIN: Warm, dry, no laceration, no petechiae, no rashes or lesions. Course Orders Ordered: ED Orders 06/27/21 23:10 Complete Blood Count AUTO DIFF Stat Comprehensive Metabolic Panel Stat HCG Quantitative /Beta subunit Stat Lipase Stat 06/27/21 23:20 US OB <= 14 weeks fetus Stat 06/27/21 23:39 US abdomen complete Stat 06/28/21 00:22 Lactate (Lactic Acid) Stat 06/28/21 01:26 Urinalysis and Microscopic Stat Discontinued Medications Hydrocodone Bitart/Acetaminophen (Hydrocodone/Acet 5/325 Prepack) 1 bottle MISC SEEINSTR ONE Stop: 06/28/21 02:37 Last Admin: 06/28/21 02:41 Dose: 1 bottle Documented by: SHERLEY Hydromorphone HCl (Hydromorphone 0.5 Mg Inj) 0.5 mg IV NOW ONE Stop: 06/27/21 23:56 Last Admin: 06/28/21 00:19 Dose: Not Given Documented by: JESSI Hydromorphone HCl (Hydromorphone 1 Mg Inj) 0.5 mg IV NOW ONE Stop: 06/28/21 00:31 Last Admin: 06/28/21 00:20 Dose: 0.5 mg Documented by: JESSI Sodium Chloride (Normal Saline 0.9%) 1,000 mls @ 1,000 mls/hr IV BOLUS ONE Stop: 06/28/21 00:17 Last Infusion: 06/28/21 00:28 Dose: 0 mls/hr Documented by: Admin: 06/27/21 23:22 Dose: 1,000 mls/hr Documented by: NIDIA Metoclopramide HCl (Metoclopramide 10 Mg/2 Ml Inj) 10 mg IV NOW ONE Stop: 06/28/21 01:15 Last Admin: 06/28/21 01:25 Dose: 10 mg Documented by: NIDIA Morphine Sulfate (Morphine 4 Mg/Ml Inj) 4 mg IM NOW ONE Stop: 06/27/21 23:38 Last Admin: 06/27/21 23:42 Dose: 4 mg Documented by: NIDIA Vital Signs Vital signs: Vital Signs - 8 hr 06/27/21 22:59 06/27/21 23:44 06/28/21 00:00 Temperature 98 F Pulse Rate 78 87 79 Respiratory Rate 18 15 17 Blood Pressure 157/92 H Pulse Oximetry 100 99 99 06/28/21 00:30 06/28/21 01:00 06/28/21 01:21 Temperature Pulse Rate 82 75 77 Respiratory Rate 18 16 20 Blood Pressure 123/67 Pulse Oximetry 95 96 99 06/28/21 01:29 06/28/21 01:30 06/28/21 02:00 Temperature Pulse Rate 81 85 69 Respiratory Rate 15 18 18 Blood Pressure 130/73 Pulse Oximetry 99 100 99 MDM - Nausea/Vomiting/Diarrhea Lab Data Result diagrams: 06/27/21 23:10 06/27/21 23:10 Labs: Lab Results 06/27/21 06/27/21 06/27/21 Range/Units 23:10 23:10 23:10 WBC 17.6 H (4.5-11.0) X10^3/uL RBC 4.26 (4.0-5.2) X10^6/uL Hgb 12.7 (12.0-16.0) g/dL Hct 36.9 (36-46) % MCV 86.6 (80-100) fL MCH 29.9 (26-34) PG MCHC 34.5 (30-36) % RDW 13.5 (11.6-14.8) % Plt Count 278 (150-400) X10^3/uL Neut % (Auto) 91.9 H (50-75) % Lymph % (Auto) 5.3 L (25-40) % [place] % (Auto) 2.5 L (3-14) % Eos % (Auto) 0.0 L (2-4) % Baso % (Auto) 0.3 (0-2) % Neut # (Auto) 69707 H (9361-6700) /uL Lymph # (Auto) 900 L (4173-5844) /uL [place] # (Auto) 400 (0-900) /uL Eos # (Auto) 0 (0-450) /uL Baso # (Auto) 100 (0-100) /uL Sodium 131 L (137-145) mmol/L Potassium 4.0 (3.4-5.1) mmol/L Chloride 104 (98-107) mmol/L Carbon Dioxide 21 L (22-32) mmol/L BUN 5 L (7-17) mg/dL Creatinine 0.48 L (0.52-1.04) mg/dL Estimated GFR > 60.0 (>60) mL/min BUN/Creatinine Ratio 10.4 (6-22) Glucose 120 H (70-100) mg/dL Lactate (0.7-2.1) mmol/L Calcium 9.1 (8.4-10.2) mg/dL Total Bilirubin 0.9 (0.2-1.3) mg/dL AST 32 (14-36) IU/L ALT 31 (<35) IU/L Alkaline Phosphatase 50 (38-126) U/L Total Protein 8.1 (6.3-8.2) g/dL Albumin 4.5 (3.5-5.0) g/dL Globulin 3.6 (1.7-4.1) g/dL Albumin/Globulin Ratio 1.3 (1.0-2.8) Lipase 40 (23-300) U/L HCG, Quant 93707 mIU/mL Urine Color Urine Appearance Urine pH (4.5-8.0) Ur Specific Loop (1.000-1.035) Urine Protein (Negative) Urine Glucose (UA) (Negative) g/dL Urine Ketones (NEGATIVE) Urine Occult Blood (Negative) Urine Nitrate (Negative) Urine Bilirubin (NEGATIVE) Urine Urobilinogen (0.2) E.U./dL Ur Leukocyte Esterase (NEGATIVE) Urine RBC (0-5/HPF) Urine WBC (0-5/HPF) Ur Squamous Epith Cells (0-5/HPF) Urine Bacteria (None) Ur Culture Indicated? Blood Type 06/27/21 06/27/21 06/28/21 Range/Units 23:10 23:10 01:26 WBC (4.5-11.0) X10^3/uL RBC (4.0-5.2) X10^6/uL Hgb (12.0-16.0) g/dL Hct (36-46) % MCV (80-100) fL MCH (26-34) PG MCHC (30-36) % RDW (11.6-14.8) % Plt Count (150-400) X10^3/uL Neut % (Auto) (50-75) % Lymph % (Auto) (25-40) % [place] % (Auto) (3-14) % Eos % (Auto) (2-4) % Baso % (Auto) (0-2) % Neut # (Auto) (5353-2097) /uL Lymph # (Auto) (2373-4546) /uL [place] # (Auto) (0-900) /uL Eos # (Auto) (0-450) /uL Baso # (Auto) (0-100) /uL Sodium (137-145) mmol/L Potassium (3.4-5.1) mmol/L Chloride (98-107) mmol/L Carbon Dioxide (22-32) mmol/L BUN (7-17) mg/dL Creatinine (0.52-1.04) mg/dL Estimated GFR (>60) mL/min BUN/Creatinine Ratio (6-22) Glucose (70-100) mg/dL Lactate 1.4 (0.7-2.1) mmol/L Calcium (8.4-10.2) mg/dL Total Bilirubin (0.2-1.3) mg/dL AST (14-36) IU/L ALT (<35) IU/L Alkaline Phosphatase (38-126) U/L Total Protein (6.3-8.2) g/dL Albumin (3.5-5.0) g/dL Globulin (1.7-4.1) g/dL Albumin/Globulin Ratio (1.0-2.8) Lipase (23-300) U/L HCG, Quant mIU/mL Urine Color Yellow Urine Appearance Clear Urine pH 6.5 (4.5-8.0) Ur Specific Loop 1.015 (1.000-1.035) Urine Protein Negative (Negative) Urine Glucose (UA) Negative (Negative) g/dL Urine Ketones 2+ H (NEGATIVE) Urine Occult Blood Negative (Negative) Urine Nitrate Negative (Negative) Urine Bilirubin Negative (NEGATIVE) Urine Urobilinogen 0.2 (0.2) E.U./dL Ur Leukocyte Esterase Negative (NEGATIVE) Urine RBC None seen (0-5/HPF) Urine WBC 0-1/hpf (0-5/HPF) Ur Squamous Epith Cells 1-5 /hpf (0-5/HPF) Urine Bacteria Few (2-10) H (None) Ur Culture Indicated? Cult not indicated Blood Type Cancelled Imaging Data US - abdomen: Radiologist's Impression: PROCEDURE:? US ABDOMEN COMPLETE ? INDICATIONS:? PAIN ? TECHNIQUE:? Real-time scanning was performed of the abdominal and retroperitoneal organs, with image documentation.? ? COMPARISON:? [facility], , US ABDOMEN LIMITED, 02/21/2021, 10:00. ? FINDINGS:? ? Liver:? Liver is normal in size and homogeneous in echotexture.? ? Gallbladder:? Sludge is present.? Wall thickness is within normal limits measuring 1.6 mm.? ? Biliary ducts:? Intrahepatic bile ducts are non-dilated.? Extrahepatic bile duct caliber measures 3.7 mm.? Normal is 6-7 mm or less in diameter, or 10 mm or less post-cholecystectomy.? ? Pancreas:? Visualized portions of the pancreas are sonographically normal.? ? Spleen:? Spleen is normal in size and homogeneous in echotexture.? ? Kidneys:? Kidneys are normal in size and echotexture.? Right kidney measures 11 point cm long; left kidney measures 11.6 cm long.? No hydronephrosis or nephrolithiasis.? No solid masses.? ? Aorta:? Visualized aorta is normal in caliber at less than 3 cm.? ? Iliacs:? Proximal common iliac arteries are not well seen. ? IVC:? Intrahepatic inferior vena cava is not visualized. ? Miscellaneous:? No free abdominal fluid.? ? ? IMPRESSION:? ? Gallbladder sludge without wall thickening. ? Dictated by: Stephanie Archibald M.D. on 06/28/2021 at 1:00 ? ? US - OB: Radiologist's Impression: PROCEDURE:? US OB <= 14 WEEKS FETUS ? INDICATIONS:? PAIN ? OUTSIDE/PRIOR DATING DATA:? Last menstrual period (LMP):? Unknown.? LMP-based estimated date of delivery (BRIAN):? Unknown.? First dating scan (date and location):? 05/29/2021.? Estimated date of delivery (BRIAN) from first dating scan:? 01/24/2022. ? TECHNIQUE:? Real-time scanning was performed of the fetus and maternal pelvic organs, with image documentation.? Endovaginal scanning was also performed to better visualize the fetus and maternal ovaries.? ? COMPARISON:? [facility], OB <= 14 WEEKS FETUS, 05/29/2021, 8:25.? [facility], OB < 14 WEEKS + OB TRANSVAG, 06/05/2021, 12:13. ? FINDINGS:? ? Embryo:? [place]-rump length is present measuring 9 weeks 5 days.? No visualized subchorionic hemorrhage.? Yolk sac is present. Heart rate:? 169 beats per minute ? Maternal organs:? Ovaries demonstrate a septated right ovarian cyst measuring 7.4 x 4.2 x 5.2 cm.? This previously measured 6.4 cm without septation. ? ? IMPRESSION:? ? Single live intrauterine measuring 9 weeks 5 days. ? Septated right ovarian cyst more prominent when compared to prior exam. ? We strive to produce accurate, complete, and clear reports of imaging services. To assist us in improving patient care, this report was composed using standard report templates and voice recognition software. Therefore, it may contain abnormal punctuation, insertions and/or omissions. Occasional wrong-word or sound-alike substitutions may occur. Though we review the report and make efforts to correct it, we do recommend that the report be read carefully in proper context to recognize any text inaccuracies. ? Dictated by: Stephanie Archibald M.D. on 06/28/2021 at 1:01 ? ? MDM Narrative Medical decision making narrative: Patient having severe abdominal pain with light touch in her gastric and right upper quadrant pain. Bedside ultrasound done by myself does not show any free fluid and confirmed IUP. Formal ultrasound confirms the same and does show some gallbladder sludge. At this time patient likely had biliary colic. There are no stones. Blood work is overall reassuring. Pain is significantly better after dilaudid and only minimally improved with morphine. At this time she feels ready and able to go home. Discharge Plan Departure Patient Disposition: Home Clinical Impression: Biliary colic Instructions: Eating a Diet Low in Saturated Fat, Trans Fat, and Cholesterol, Gallstones Activity Restrictions/Additional Instructions: *You have been diagnosed with biliary colic *What to do: At this time your pain was likely caused from her gallbladder. Gallbladder can not pain can be exacerbated by food and diet. Please follow low-fat diet. *Continue to take medications as directed [place] 1 tablet every 6 hours if needed for severe pain *Follow up with your primary care provider in 2-3 days or call [phone] *Return to ER if you should have increasing pain persistent vomiting, fever or any new, worsening or concerning symptoms CONTROLLED SUBSTANCE DISCHARGE (Narcotoic/benzodiazepine/Flexeril/Phenergan) 1. You have been prescribed narcotic medications, it does have acetaminophen/Tylenol/paracetamol in it, DO NOT TAKE MORE THAN 4,00mg in 24 hours of Tylenol. TRAMADOL DOES NOT CONTAIN TYLENOL 2. Please understand that we cannot provide further refills of narcotics, benzodiazepines or controlled substances through the ED and her pain management will need to be through your provider. 3. While on these medications you cannot drive or operate heavy machinery. 4. You cannot sign legal documents or perform any duties such as this. 5. As long as you're taking opiate pain medications he should also be taking a stool softener such as Colace, Dulcolax, MiraLAX or prune juice, to help avoid constipation. Prescriptions: New hydrocodone-acetaminophen 5-325 mg tablet 1 tab PO Q6H PRN (Reason: pain) Qty: 10 0RF No Action sucralfate 1 gram tablet 1 g PO BID Qty: 20 0RF pantoprazole [Protonix] 40 mg tablet,delayed release (DR/EC) 40 mg PO DAILY Qty: 30 0RF hydroxyzine HCl 25 mg tablet 25 mg PO TID PRN (Reason: anxiety) Qty: 20 0RF ondansetron 4 mg tablet,disintegrating 4 mg PO Q8H PRN (Reason: nausea and vomiting) Qty: 10 0RF prenat.vits,jonathan,[id number] Tablet 1 tab PO DAILY Qty: 30 0RF ondansetron 4 mg tablet,disintegrating 4 mg PO Q8H PRN (Reason: nausea and vomiting) Qty: 10 0RF hyoscyamine sulfate 0.125 mg tablet 0.125 mg PO BID-QID PRN (Reason: dyspepsia) Qty: 20 0RF ondansetron 4 mg tablet,disintegrating 4 mg PO TID-QID PRN (Reason: nausea and vomiting) Qty: 10 0RF amoxicillin-pot clavulanate [Augmentin] 875-125 mg tablet 1 tab PO BID Qty: 20 0RF fluconazole [Diflucan] 150 mg tablet 150 mg PO .qday Qty: 2 0RF Rx Instructions: Take one tablet every other day.
[2021-06-28 00:32] LABS: HCG Quantitative /Beta subunit 71537 mIU/mL
[2021-06-28 00:40] LABS: Lactate (Lactic Acid) 1.4 mmol/L (0.7-2.1)
[2021-06-28] MEDS: METOCLOPRAMIDE 10 MG/2 ML INJ IV (01:25)
[2021-06-28 01:41] LABS: Appearance Urine UA CLEAR; Bilirubin Urine UA NEGATIVE (NEGATIVE); Color Urine UA YELLOW; Glucose Urine UA NEGATIVE (Negative); Ketones Urine UA 2+ (NEGATIVE); Leukocyte Esterase Urine UA NEGATIVE (NEGATIVE); Nitrite Urine UA NEGATIVE (Negative); Occult Blood Urine UA NEGATIVE (Negative); Protein Urine UA NEGATIVE (Negative); Specific Gravity Urine UA 1.015 (1.000-1.035); Urobilinogen Urine UA 0.2 E.U./dL (0.2)
[2021-06-28 01:44] LABS: pH Urine UA 6.5 (4.5-8.0)
[2021-06-28 01:48] LABS: Bacteria Urine Few (2-10); RBC Urine None Seen (0-5/HPF); Squamous Epithelial Cell Urine 1-5 /HPF (0-5/HPF); WBC Urine 0-1/HPF (0-5/HPF)
[2021-06-28 01:49] LABS: Culture Indicated Urine Cult Not Indicated
[2021-06-28] MEDS: HYDROCODONE/ACET 5/325 PREPACK 1 BOTTLE MISC (02:41)
== END 2021-06-28 02:42 | disposition home or self-care (01) ==
PROVIDERS: Emergency Provider Emergency Medicine
DX: O26.891 Other specified pregnancy related conditions, first trimester (principal); K80.50 Calculus of bile duct without cholangitis or cholecystitis without obstruction; Z3A.09 9 weeks gestation of pregnancy; Z87.891 Personal history of nicotine dependence
CPT/HCPCS: 76700; 76801; 76817; 80053; 81001; 83605; 83690; 84702; 85025; 96361; 96372; 96374; 96375; 99284; J1170; J2270; J2405; J2765

== ENCOUNTER 2021-06-29 17:07 | Emergency (ER) | payer OTHER, SELFPAY ==
[2021-06-29 17:16] VITALS: BP 165/92; PULSE 82; RESP 17; TEMP 36.1; O2SAT 98; BMI 34.6
[2021-06-29 17:29] LABS: Add Manual Diff / Slide Review NO; Basophils Absolute Auto 0 /uL (0-100); Basophils Percent Auto 0.3 % (0-2); Eosinophils Absolute Auto 100 /uL (0-450); Eosinophils Percent Auto 0.7 % (2-4); Hematocrit 37.9 % (36-46); Hemoglobin 12.9 g/dL (12.0-16.0); Lymphocytes Absolute Auto 2300 /uL (1100-4500); Mean Corpuscular HGB Conc 34.1 % (30-36); Mean Corpuscular Hemoglobin 29.5 PG (26-34); Mean Corpuscular Volume 86.6 fL (80-100); Monocytes Absolute Auto 700 /uL (0-900); Monocytes Percent Auto 5.1 % (3-14); Neutrophils Absolute Auto 10600 /uL (1500-7000); Neutrophils Percent Auto 76.9 % (50-75); Platelet Count 275 X10^3/uL (150-400); Red Blood Cell Count 4.38 X10^6/uL (4.0-5.2); Red Cell Distribution Width 13.3 % (11.6-14.8); White Blood Cell Count 13.8 X10^3/uL (4.5-11.0)
[2021-06-29] MEDS: ONDANSETRON 4 MG/2 ML INJ IV (17:33)
[2021-06-29 17:42] VITALS: PULSE 84; RESP 20; O2SAT 100
[2021-06-29] MEDS: SODIUM CHLORIDE 0.9% 1,000 ML 1000 ML IV (17:50)
--- NOTE | 2021-06-29 17:54 | ED.ABDPAIN ---
HPI - Abdominal Pain General Chief Complaint: Abdominal Pain Stated Complaint: severe abd pain vomiting Time Seen by Provider: 06/29/21 17:13 Source: family Mode of arrival: Wheelchair History of Present Illness HPI narrative: Patient is a 30-year-old female history of anxiety and pseudoseizures, currently 9 weeks presenting today for her 9th of emergency department visit in the year 2021. She frequently presents with abdominal pain nausea and vomiting. I saw her myself 2 days ago for the same. She has found gallbladder sludge but no gallstones. She had leukocytosis at that time of 19,000 but was afebrile with normal liver enzymes and bilirubin. Instructed her to watch her diet she was given pain medications. She said she actually was feeling better so much so that she and her not to [employer] for she proceeded to have appetite artichoke dip and other fried foods. Now has worsening epigastric and right upper quadrant pain. She states that she is having vaginal bleeding today she passed a small blood clot. She says she has not gone through a pad. She is immediately requesting morphine and Dilaudid for pain management Related Data Home Medications Medication Instructions Recorded Confirmed nitrofurantoin 100 mg PO DAILY 06/29/21 06/29/21 monohydrate/macrocrystals 100 mg capsule sertraline 25 mg tablet 25 mg PO DAILY 06/29/21 06/29/21 Previous Rx's Medication Instructions Recorded amoxicillin 875 mg-potassium 1 tab PO BID #20 tab 02/21/21 clavulanate 125 mg tablet (Augmentin) hyoscyamine sulfate 0.125 mg tablet 0.125 mg PO BID-QID PRN #20 tab 02/21/21 ondansetron 4 mg disintegrating 4 mg PO TID-QID PRN #10 tab 02/21/21 tablet fluconazole 150 mg tablet 150 mg PO .qday #2 tab 03/07/21 (Diflucan) hydroxyzine HCl 25 mg tablet 25 mg PO TID PRN #20 tab 04/23/21 ondansetron 4 mg disintegrating 4 mg PO Q8H PRN #10 tab 04/23/21 tablet pantoprazole 40 mg tablet,delayed 40 mg PO DAILY #30 tab 04/23/21 release (Protonix) sucralfate 1 gram tablet 1 g PO BID #20 tab 04/23/21 prenat.vits,jonathan,[id number]-[id number] 1 tab PO DAILY #30 tab 05/29/21 ondansetron 4 mg disintegrating 4 mg PO Q8H PRN #10 tab 06/17/21 tablet hydrocodone 5 mg-acetaminophen 325 1 tab PO Q6H PRN #10 tab 06/28/21 mg tablet metoclopramide HCl 10 mg tablet 10 mg PO Q6H PRN #10 tab 06/29/21 (Reglan) Allergies Allergy/AdvReac Type Severity Reaction Status Date / Time No Known Drug Allergies Allergy Verified 06/29/21 17:22 Review of Systems Review of Systems Narrative: GENERAL: Denies chills, fatigue, malaise, fever, sweats, travel HEENT: Denies sinus pain, ear pain, sore throat, difficulty swallowing, neck pain RESPIRATORY: Denies dyspnea, cough, wheezing, hemoptysis, sputum. CARDIOVASCULAR: Denies chest pain, palpitations, orthopnea, edema GASTROINTESTINAL: See HPI BATTERY REPAIRER: See HPI : Denies dysuria, frequency, incontinence, hematuria, urinary retention, flank pain. MUSCULOSKELETAL: Denies weakness, joint pain, or bony pain SKIN: No rash, no erythema, no pruritus NEUROLOGIC: Denies weakness, dizziness, headache, numbness, change in speech, confusion PSYCHIATRIC: No concerning psychosocial issues. 12 point review of systems is negative except for those stated above and HPI Patient History Social History Smoking Status: Former smoker Smoking Status: Former smoker tobacco type: vaping alcohol intake frequency: 0-2 drinks per day Substance Use Type: does not use Exam Initial Vital Signs Initial Vital Signs: Vital Signs Temperature 97 F L 06/29/21 17:16 Pulse Rate 82 06/29/21 17:16 Respiratory Rate 17 06/29/21 17:16 Blood Pressure 165/92 H 06/29/21 17:16 Pulse Oximetry 98 06/29/21 17:16 GENERAL: Tearful hyperventilating 30-year-old female appears uncomfortable and in pain HEENT: Head atraumatic,EOMI, pupils reactive, face symmetric, [moist] mucous membranes CARDIOVASCULAR: Regular rate and rhythm without murmurs, rubs or gallops. RESPIRATORY: Breath sounds equal bilaterally, no wheezes rales or rhonchi. ABDOMEN: Epigastric pain pain in right upper quadrant, minimal lower abdominal pain EXTREMITIES: Normal range of motion, no clubbing or edema. Neurovascularly intact NEUROLOGICAL: Alert and oriented x4.Normal gait and speech. SKIN: Warm, dry, no laceration, no petechiae, no rashes or lesions. Course Orders Ordered: ED Orders 06/29/21 17:20 CBC Auto Diff [Complete Blood Count AUTO DIFF] Stat 06/29/21 17:50 CMP [Comprehensive Metabolic Panel] Stat Lipase Stat 06/29/21 17:53 [place] [facility] [place] Guidance Counselor Stat 06/29/21 18:05 US OB <= 14 weeks fetus Stat US abdomen limited Stat 06/29/21 19:26 Urine Drug Screen, Rapid Stat Discontinued Medications Acetaminophen (Acetaminophen 325 Mg Tablet) 975 mg PO NOW ONE Stop: 06/29/21 18:25 Last Admin: 06/29/21 18:46 Dose: 975 mg Documented by: BASILIA Hydromorphone HCl (Hydromorphone 0.5 Mg Inj) 0.5 mg IV NOW ONE Stop: 06/29/21 17:54 Last Admin: 06/29/21 17:59 Dose: 0.5 mg Documented by: BASILIA Sodium Chloride (Normal Saline 0.9%) 1,000 mls @ 1,000 mls/hr IV BOLUS ONE Stop: 06/29/21 18:33 Last Infusion: 06/29/21 21:12 Dose: 0 mls/hr Documented by: Admin: 06/29/21 17:50 Dose: 1,000 mls/hr Documented by: BASILIA Metoclopramide HCl (Metoclopramide 10 Mg/2 Ml Inj) 10 mg IV NOW ONE Stop: 06/29/21 18:49 Last Admin: 06/29/21 19:37 Dose: Not Given Documented by: DESHAUN Metoclopramide HCl (Metoclopramide 10 Mg/2 Ml Inj) 10 mg IV NOW ONE Stop: 06/29/21 18:51 Last Admin: 06/29/21 18:54 Dose: 10 mg Documented by: BASILIA Morphine Sulfate (Morphine 4 Mg/Ml Inj) 4 mg IV NOW ONE Stop: 06/29/21 20:22 Last Admin: 06/29/21 21:01 Dose: 4 mg Documented by: SHERLEY Ondansetron HCl (Ondansetron 4 Mg/2 Ml Inj) 4 mg IV NOW ONE Stop: 06/29/21 17:25 Last Admin: 06/29/21 17:33 Dose: 4 mg Documented by: BASILIA Vital Signs Vital signs: Vital Signs - 8 hr 06/29/21 17:16 06/29/21 17:42 06/29/21 18:00 Temperature 97 F L Pulse Rate 82 84 74 Respiratory Rate 17 20 21 Blood Pressure 165/92 H 142/98 H Pulse Oximetry 98 100 100 06/29/21 19:45 06/29/21 21:13 Temperature 97.5 F L Pulse Rate 69 87 Respiratory Rate 17 16 Blood Pressure 132/84 145/89 H Pulse Oximetry 100 98 MDM - Abdominal Pain Lab Data Result diagrams: 06/29/21 17:20 06/29/21 17:50 Labs: Lab Results 06/29/21 06/29/21 06/29/21 Range/Units 17:20 17:50 19:26 WBC 13.8 H (4.5-11.0) X10^3/uL RBC 4.38 (4.0-5.2) X10^6/uL Hgb 12.9 (12.0-16.0) g/dL Hct 37.9 (36-46) % MCV 86.6 (80-100) fL MCH 29.5 (26-34) PG MCHC 34.1 (30-36) % RDW 13.3 (11.6-14.8) % Plt Count 275 (150-400) X10^3/uL Neut % (Auto) 76.9 H (50-75) % Lymph % (Auto) 17.0 L (25-40) % [place] % (Auto) 5.1 (3-14) % Eos % (Auto) 0.7 L (2-4) % Baso % (Auto) 0.3 (0-2) % Neut # (Auto) 36063 H (7830-7919) /uL Lymph # (Auto) 2300 (4858-9303) /uL [place] # (Auto) 700 (0-900) /uL Eos # (Auto) 100 (0-450) /uL Baso # (Auto) 0 (0-100) /uL Sodium 136 L (137-145) mmol/L Potassium 3.4 (3.4-5.1) mmol/L Chloride 103 (98-107) mmol/L Carbon Dioxide 23 (22-32) mmol/L BUN 3 L (7-17) mg/dL Creatinine 0.57 (0.52-1.04) mg/dL Estimated GFR > 60.0 (>60) mL/min BUN/Creatinine Ratio 5.3 L (6-22) Glucose 101 H (70-100) mg/dL Calcium 9.5 (8.4-10.2) mg/dL Total Bilirubin 0.7 (0.2-1.3) mg/dL AST 37 H (14-36) IU/L ALT 42 H (<35) IU/L Alkaline Phosphatase 62 (38-126) U/L Total Protein 8.6 H (6.3-8.2) g/dL Albumin 4.8 (3.5-5.0) g/dL Globulin 3.8 (1.7-4.1) g/dL Albumin/Globulin Ratio 1.3 (1.0-2.8) Lipase 63 D (23-300) U/L U Opiates 300ng/mL cut Positive H (Negative) Ur Oxycodone Screen Negative (Negative) Urine Methadone Screen Negative (Negative) Ur Barbiturates Screen Negative (Negative) U Tricyclic Antidepress Negative (Negative) Ur Phencyclidine Scrn Negative (Negative) Ur Amphetamines Screen Negative (Negative) U Methamphetamines Scrn Negative (Negative) Ur MDMA Scrn (Ecstasy) Negative (Negative) U Benzodiazepines Scrn Negative (Negative) Urine Cocaine Screen Negative (Negative) U Marijuana (THC) Screen Positive H (Negative) Point of care testing: Urine Dip Bedside Urine Glucose Negative Bedside Urine Bilirubin - Negative Bedside Urine Ketone ++ 40 Urine Specific [place] 1.015 Bedside Urine Occult Blood - Negative Bedside Urine pH 8.0 Bedside Urine Protein - Negative Bedside Urine Urobilinogen - Negative Bedside Urine Nitrite - Negative Bedside Urine Leukocytes - Negative Esterase Imaging Data US - OB: Radiologist's Impression: PROCEDURE:? US OB <= 14 WEEKS FETUS ? INDICATIONS:? bleeding ? OUTSIDE/PRIOR DATING DATA:? Last menstrual period (LMP):? Not available LMP-based estimated date of delivery (BRIAN):? Not available.? First dating scan (date and location):? 05/29/21.? Estimated date of delivery (BRIAN) from first dating scan:? 01/24/22. The calculations are made using the 1st OB ultrasound derived BRIAN of 01/24/22. ? TECHNIQUE:? Real-time scanning was performed of the fetus and maternal pelvic organs, with image documentation.? Endovaginal scanning was also performed to better visualize the fetus and maternal ovaries.? ? COMPARISON:? [facility], OB <= 14 WEEKS FETUS, 06/27/2021, 23:57.? [facility], OB <= 14 WEEKS FETUS, 05/29/2021, 8:25. ? FINDINGS:? ? Embryo:? 3.0 cm crown-rump length, which correlates with a gestational age of 9 weeks 6 days +/-5 days.? Small adjacent subchorionic hemorrhage appears present, measuring approximately 2.4 x 1.9 x 1.4 cm.? ? Heart rate:? 178 beats per minute ? Maternal organs:? Ovaries no change, septated cyst on the right, normal appearing left ovary.. ? ? ? IMPRESSION:? Single living intrauterine gestation with appropriate interval growth.? What likely is a perigestational subchorionic hemorrhage is present adjacent to the gestational sac seen measuring 1.9 x 1.4 x 2.4 cm.? Arterial and venous flow is seen within the right ovary which contains a septated cyst measuring approximately 7.5 x 5.1 x 4.2 cm, previously present.? ? We strive to produce accurate, complete, and clear reports of imaging services. To assist us in improving patient care, this report was composed using standard report templates and voice recognition software. Therefore, it may contain abnormal punctuation, insertions and/or omissions. Occasional wrong-word or sound-alike substitutions may occur. Though we review the report and make efforts to correct it, we do recommend that the report be read carefully in proper context to recognize any text inaccuracies. ? ? Dictated by: Kael Ferguson M.D. on 06/29/2021 at 20:29 ? ? US - abdomen: Radiologist's Impression: PROCEDURE: US ABDOMEN LIMITED ? INDICATIONS:? ruq known sludge ? TECHNIQUE:? Real-time focused scanning was performed of the abdomen, with image documentation.? ? COMPARISON:? [facility], ABDOMEN COMPLETE, 06/27/2021, 23:46. ? FINDINGS:? The liver is normal echogenicity. ? Previously seen gallbladder sludge is not identified on the current exam, although findings are technically limited secondary to patient body habitus and decreased tolerance due to pain.? No gallstones or gallbladder wall thickening.? No pericholecystic fluid.? Sonographic? Maldonado sign is negative. ? No intrahepatic biliary ductal dilatation.? The proximal common duct is normal in size.? The distal common duct is not well seen. ? The visualized portions of the pancreas appear normal.? No free fluid is seen in the right upper quadrant. ? IMPRESSION:? Previously seen gallbladder sludge not identified on the current exam.? No acute sonographic abnormality identified. ? ? Dictated by: Ian Jacobs M.D. on 06/29/2021 at 20:00? [facility] Narrative Medical decision making narrative: Patient requesting multiple doses of Dilaudid and morphine. Drug screen is positive for marijuana. She has a history of severe anxiety. His ultrasound today does not show gallbladder sludge mild elevation in liver enzymes but no bilirubin or lipase elevation. No sign of infection. His at this time no cause for such severe pain. She is found to have a small subchorionic hemorrhage likely causing her fact renal bleeding. I have had a milka discussion with her about chronic use of opiate medications while along with marijuana use during . Social Work has been in couple times to try and talk to her which she refuses to do. I have spoken to alone he states that she is very anxious he is unsure how to help her at this time. At this time I do have strong suspicion for pain seeking medication and manipulative behavior. I have told her that she will no longer be getting opiate medication in the emergency department. She understands this she has repeated it back to me, and nursing staff are also witness. Discharge Plan Departure Patient Disposition: Home Clinical Impression: Nausea and vomiting during , Subchorionic hemorrhage in first trimester Instructions: Early Bleeding, Nausea and Vomiting-Adult Activity Restrictions/Additional Instructions: *You have been diagnosed with nausea vomiting with , vaginal bleeding *What to do: You do need to stop using marijuana while . Chronic ongoing opiate use well will likely cause pre term labor and opiate addiction to the baby. Marijuana can also be contributing to your nausea and vomiting. It is recommended that you stop marijuana. You will not be getting any narcotics when you come to the emergency department no narcotic prescriptions will be given to you. Pelvic rest, no sex until vaginal bleeding has stopped and you have been cleared *Continue to take medications as directed Reglan 10 mg every 6 hours if needed for nausea vomiting *Follow up with your primary care provider in 2-3 days or call [phone] Consider seeing an OB if you continue to have a complicated *Return to ER if you should have increased vaginal bleeding more than 2 pads in 1 hour, persistent vomiting unable to stop, increased pain or any new, worsening or concerning symptoms Prescriptions: New metoclopramide HCl [Reglan] 10 mg tablet 10 mg PO Q6H PRN (Reason: nausea and vomiting) Qty: 10 0RF No Action sucralfate 1 gram tablet 1 g PO BID Qty: 20 0RF pantoprazole [Protonix] 40 mg tablet,delayed release (DR/EC) 40 mg PO DAILY Qty: 30 0RF hydroxyzine HCl 25 mg tablet 25 mg PO TID PRN (Reason: anxiety) Qty: 20 0RF ondansetron 4 mg tablet,disintegrating 4 mg PO Q8H PRN (Reason: nausea and vomiting) Qty: 10 0RF prenat.vits,jonathan,[id number] Tablet 1 tab PO DAILY Qty: 30 0RF ondansetron 4 mg tablet,disintegrating 4 mg PO Q8H PRN (Reason: nausea and vomiting) Qty: 10 0RF hydrocodone-acetaminophen 5-325 mg tablet 1 tab PO Q6H PRN (Reason: pain) Qty: 10 0RF sertraline 25 mg tablet 25 mg PO DAILY 0RF Label Comments: TAKE 1 TABLET BY MOUTH EVERY DAY nitrofurantoin monohyd/m-cryst 100 mg capsule 100 mg PO DAILY 0RF Label Comments: TAKE 1 CAPSULE BY MOUTH TWICE DAILY hyoscyamine sulfate 0.125 mg tablet 0.125 mg PO BID-QID PRN (Reason: dyspepsia) Qty: 20 0RF ondansetron 4 mg tablet,disintegrating 4 mg PO TID-QID PRN (Reason: nausea and vomiting) Qty: 10 0RF amoxicillin-pot clavulanate [Augmentin] 875-125 mg tablet 1 tab PO BID Qty: 20 0RF fluconazole [Diflucan] 150 mg tablet 150 mg PO .qday Qty: 2 0RF Rx Instructions: Take one tablet every other day. Referrals: Naren Ashby PA-C [Primary Care Provider] -
[2021-06-29] MEDS: HYDROMORPHONE 0.5 MG INJ IV (17:59)
[2021-06-29 18:00] VITALS: BP 142/98; PULSE 74; RESP 21; O2SAT 100
--- NOTE | 2021-06-29 18:05 | DI.US.S_ITS ---
PROCEDURE: US OB <= 14 WEEKS FETUS INDICATIONS: bleeding OUTSIDE/PRIOR DATING DATA: Last menstrual period (LMP): Not available LMP-based estimated date of delivery (BRIAN): Not available. First dating scan (date and location): 05/29/21. Estimated date of delivery (BRIAN) from first dating scan: 01/24/22. The calculations are made using the 1st OB ultrasound derived BRIAN of 01/24/22. TECHNIQUE: Real-time scanning was performed of the fetus and maternal pelvic organs, with image documentation. Endovaginal scanning was also performed to better visualize the fetus and maternal ovaries. COMPARISON: [facility], OB <= 14 WEEKS FETUS, 06/27/2021, 23:57. [facility], OB <= 14 WEEKS FETUS, 05/29/2021, 8:25. FINDINGS: Embryo: 3.0 cm crown-rump length, which correlates with a gestational age of 9 weeks 6 days +/-5 days. Small adjacent subchorionic hemorrhage appears present, measuring approximately 2.4 x 1.9 x 1.4 cm. Heart rate: 178 beats per minute Maternal organs: Ovaries no change, septated cyst on the right, normal appearing left ovary.. IMPRESSION: Single living intrauterine gestation with appropriate interval growth. What likely is a perigestational subchorionic hemorrhage is present adjacent to the gestational sac seen measuring 1.9 x 1.4 x 2.4 cm. Arterial and venous flow is seen within the right ovary which contains a septated cyst measuring approximately 7.5 x 5.1 x 4.2 cm, previously present. We strive to produce accurate, complete, and clear reports of imaging services. To assist us in improving patient care, this report was composed using standard report templates and voice recognition software. Therefore, it may contain abnormal punctuation, insertions and/or omissions. Occasional wrong-word or sound-alike substitutions may occur. Though we review the report and make efforts to correct it, we do recommend that the report be read carefully in proper context to recognize any text inaccuracies. Dictated by: Kael Ferguson M.D. on 06/29/2021 at 20:29 Approved by: Kael Ferguson M.D. on 06/29/2021 at 20:33
--- NOTE | 2021-06-29 18:05 | DI.US.S_ITS ---
PROCEDURE: US ABDOMEN LIMITED INDICATIONS: ruq known sludge TECHNIQUE: Real-time focused scanning was performed of the abdomen, with image documentation. COMPARISON: [facility], US, US ABDOMEN COMPLETE, 06/27/2021, 23:46. FINDINGS: The liver is normal echogenicity. Previously seen gallbladder sludge is not identified on the current exam, although findings are technically limited secondary to patient body habitus and decreased tolerance due to pain. No gallstones or gallbladder wall thickening. No pericholecystic fluid. Sonographic Maldonado sign is negative. No intrahepatic biliary ductal dilatation. The proximal common duct is normal in size. The distal common duct is not well seen. The visualized portions of the pancreas appear normal. No free fluid is seen in the right upper quadrant. IMPRESSION: Previously seen gallbladder sludge not identified on the current exam. No acute sonographic abnormality identified. Dictated by: Ian Jacobs M.D. on 06/29/2021 at 20:00 Approved by: Ian Jacobs M.D. on 06/29/2021 at 20:01
[2021-06-29 18:11] LABS: Alanine Aminotransferase 42 IU/L (<35); Albumin 4.8 g/dL (3.5-5.0); Albumin Globulin Ratio 1.3 (1.0-2.8); Alkaline Phosphatase 62 U/L (38-126); Aspartate Aminotransferase 37 IU/L (14-36); BUN Creatinine Ratio 5.3 (6-22); Bilirubin Total 0.7 mg/dL (0.2-1.3); Blood Urea Nitrogen 3 mg/dL (7-17); Calcium 9.5 mg/dL (8.4-10.2); Carbon Dioxide 23 mmol/L (22-32); Chloride 103 mmol/L (98-107); Estimated Glomerular Filt Rate > 60.0 mL/min (>60); Globulin 3.8 g/dL (1.7-4.1); Glucose 101 mg/dL (70-100); HEMOLYSIS < 15 (0-50); Lipase 63 U/L (23-300); Potassium 3.4 mmol/L (3.4-5.1); Sodium 136 mmol/L (137-145); Total Protein 8.6 g/dL (6.3-8.2)
[2021-06-29] MEDS: ACETAMINOPHEN 325 MG TABLET 975 MG PO (18:46)
[2021-06-29] MEDS: METOCLOPRAMIDE 10 MG/2 ML INJ IV (18:54)
[2021-06-29 19:36] LABS: Ur Creatinine Normal (Normal); Ur Specific Gravity Normal (Normal); Urine Tetrahydrocannabinol Positive (Negative); Urine pH Normal (Normal)
[2021-06-29 19:37] LABS: UR Morphine/Opiate cutoff 300 Positive (Negative); Urine Amphetamines Negative (Negative); Urine Barbiturates Negative (Negative); Urine Benzodiazepines Negative (Negative); Urine Cocaine Negative (Negative); Urine MDMA Negative (Negative); Urine Methadone Negative (Negative); Urine Methamphetamines Negative (Negative); Urine Oxycodone Negative (Negative); Urine Phencyclidine Negative (Negative); Urine Tricyclic Antidepressant Negative (Negative)
--- NOTE | 2021-06-29 19:43 | PC.NURSE ---
Pt ambulated to bathroom and accompanied her inside to assist. Urine sample collected. I chaperoned the vaginal portion of pelvic US. Pt tolerated well, then asked to speak to the doctor. Dr Franklin notified of above.
[2021-06-29 19:45] VITALS: BP 132/84; PULSE 69; RESP 17; TEMP 36.4; O2SAT 100
--- NOTE | 2021-06-29 19:54 | CM.SWNOTE ---
ED CURRICULUM DEVELOPMENT COORDINATOR consulted to speak with patient due to high utilization of ED over the past couple of months. CURRICULUM DEVELOPMENT COORDINATOR attempted to speak with patient twice; both times patient declined indicating her pain level was too great to speak with CURRICULUM DEVELOPMENT COORDINATOR. Attending physician notified that patient is not agreeable to speak with CURRICULUM DEVELOPMENT COORDINATOR at this time. Magan WHEELER
--- NOTE | 2021-06-29 20:14 | PC.NURSE ---
Dr Franklin at bedside to discuss results and plan of care. Pt asking for opioid pain med to take this pain away so I can go home and sleep. I don't want to go home in pain, I'll just have to come right back if I'm like this. Dr Franklin educated pt and regarding risks of opioid use in ; pt verbalized understanding. Agreement reached to give one more dose of opioid pain medication, pt knows we are not able to provide additional opioids in future visits.
--- NOTE | 2021-06-29 20:39 | PC.NURSE ---
Pt is now in the bathroom taking a shower, with to assist.
[2021-06-29] MEDS: MORPHINE 4 MG/ML INJ IV (21:01)
[2021-06-29 21:13] VITALS: BP 145/89; PULSE 87; RESP 16; O2SAT 98
== END 2021-06-29 21:14 | disposition home or self-care (01) ==
PROVIDERS: Physician Assistant; Emergency Provider Emergency Medicine; PCP Physician Assistant
DX: O21.9 Vomiting of pregnancy, unspecified (principal); O20.8 Other hemorrhage in early pregnancy; Z3A.09 9 weeks gestation of pregnancy; Z87.891 Personal history of nicotine dependence
CPT/HCPCS: 36415; 76705; 76801; 76817; 80053; 80305; 81003; 83690; 85025; 96361; 96374; 96375; 99284; J1170; J2270; J2405; J2765